=== PATIENT | male | born 1980 | race Caucasian/White ===

== ENCOUNTER 2017-05-28 13:45 | Emergency (ER) | payer SELFPAY ==
[2017-05-28 13:52] VITALS: TEMP 99.3
--- NOTE | 2017-05-28 15:03 | EDPHY ---
H & P Stated Complaint: Sent fro for eval panic attack causing "muscles locking up " HPI/ROS: HPI CHIEF COMPLAINT: Panic attack, anxiety HISTORY OF PRESENT ILLNESS: This patient very pleasant 37-year-old male, otherwise healthy does have a history of anxiety and panic attacks he presents emergency room stating that over the past few days he has been very stressed he is going through a big movies moving to [place]. He feels very anxious. He has been having panic attacks. He has been unable sleep with racing thoughts. He denies chest pain or shortness of breath. He thinks he may benefit from a prescription for anxiety medicine. Here in emergency room he appears well nontoxic is resting comfortably when I walked into the room is watching TV and laughing. In no acute distress. Past Medical History: Anxiety, panic attacks Past Surgical History: No recent surgical history Social History: Denies daily use of drugs alcohol tobacco products Family History: Noncontributory ROS REVIEW OF SYSTEMS: A comprehensive 10 point review of systems is otherwise negative aside from elements mentioned in the history of present illness. Exam Constitutional appears well nontoxic, laughing in the room, triage nursing summary reviewed, vital signs reviewed, awake/alert. Vital signs noted to be tachycardic, hypertensive. Eyes normal conjunctivae and sclera, EOMI, PERRLA. HENT normal inspection, atraumatic, moist mucus membranes, no epistaxis, neck supple/ no meningismus, no raccoon eyes. Respiratory clear to auscultation bilaterally, normal breath sounds, no respiratory distress, no wheezing. Cardiovascular rate normal, regular rhythm, no murmur, no edema, distal pulses normal. Gastrointestinal soft, non-tender, no rebound, no guarding, normal bowel sounds, no distension, no pulsatile mass. Genitourinary no CVA tenderness. Musculoskeletal no midline vertebral tenderness, full range of motion, no calf swelling, no tenderness of extremities, no meningismus, good pulses, neurovascularly intact. Skin pink, warm, & dry, no rash, skin atraumatic. Neurologic awake, alert and oriented x 3, AAOx3, moves all 4 extremities equally, motor intact, sensory intact, CN II-XII intact, normal cerebellar, normal vision, normal speech. Psychiatric normal mood/affect. Heme/Lymph/Immune no lymphadenopathy. Differential Diagnosis: Includes but is not limited to in a particular order, acute anxiety, panic attack Medical Decision Making: Plan for this patient limited prescription for Ativan 5 tabs. Work on breathing exercises. Return to the emergency room if there is any worsening symptoms questions or concerns. Source: Patient - Personal History Current Tetanus Diphtheria and Acellular Pertussis (TDAP): Yes - Medical/Surgical History Other PMH: anxiety/panic attacks - Social History Smoking Status: Never smoked Constitutional: Initial Vital Signs Temperature (C) 37.4 C 05/28/17 13:47 Heart Rate 120 H 05/28/17 13:47 Respiratory Rate 18 05/28/17 13:47 Blood Pressure 191/137 H 05/28/17 13:47 O2 Sat (%) 95 05/28/17 13:47 O2 Delivery Mode Room Air Allergies/Adverse Reactions: No Known Allergies Allergy (Unverified 05/28/17 13:52) Home Medications: Medication Instructions Recorded LORazepam [Ativan] 1 mg PO DAILY #5 tablet 05/28/17 Departure - Departure Disposition: Home, Routine, Self-Care Clinical Impression: Anxiety Condition: Good Instructions: Anxiety (ED) Additional Instructions: 1. Work on breathing exercises. 2. Take anxiety medicine only when your feeling very anxious. 3. Return emergency room if you have any worsening symptoms questions or concerns. Referrals: NONE *PRIMARY CARE P,. [Primary Care Provider] - As per Instructions Prescriptions: LORazepam [Ativan] 1 mg PO DAILY #5 tablet
[2017-05-28 16:58] VITALS: BP 169/115; PULSE 102; RESP 16; O2SAT 98
== END 2017-05-28 16:51 | disposition home or self-care (01) ==
DX: F41.9 Anxiety disorder, unspecified (principal)

== ENCOUNTER 2017-06-10 12:55 | Inpatient (IN) | payer SELFPAY ==
--- NOTE | 2017-06-10 14:21 | EDPHY ---
HPI/HX/ROS/PE/MDM Narrative: CHIEF COMPLAINT: Shortness of breath. HISTORY OF PRESENT ILLNESS: This patient is a healthy 37 year old male with history of anxiety complaining of increased anxiety and associated shortness of breath over the past couple of weeks. He was evaluated 05/28/17 here for similar symptoms, and given a prescription for Ativan at that time for symptom relief. He is relocating to [place] in two weeks, and has felt quite anxious and overwhelmed. He has been unable to sleep much and feels his breathing has been "challenged", which he describes as a shallowness rather than rapid breathing or chest tightness. He generally does breath work and practices deep breathing, and states this sensation is unusual for him. Symptoms are worse at night. He endorses a feeling of irregularity in his heartbeat. He denies chest pain or tingling around his lips or in his fingers. He denies personal or family history of blood clots. No fever, chills, chest pain, vomiting, diarrhea, urinary complaints, headache, lightheadedness. REVIEW OF SYSTEMS: Aside from elements discussed in the HPI, a comprehensive 10-point review of systems was reviewed and is negative. PAST MEDICAL HISTORY: Anxiety. SOCIAL HISTORY: Nonsmoker. No marijuana use. Rare alcohol use. VITAL SIGNS: Reviewed by me. BP 188/127 GENERAL: Well-developed, well-nourished, resting comfortably in no obvious respiratory distress. HEENT: Atraumatic. Eyes: No icterus, no injection. Mouth: moist mucous membranes. No erythema or lesions. Neck: supple with no adenopathy. LUNGS: Clear to auscultation bilaterally, no wheezes, rhonchi or rales. CARDIAC: Regular rate and rhythm, no rubs, murmurs or gallops. ABDOMEN: Soft, nontender, nondistended, bowel sounds normal. BACK: No CVA tenderness. EXTREMITIES: No trauma. Trace edema. Range of motion is normal throughout. NEURO: Alert and oriented, grossly nonfocal. SKIN: Warm and dry, no rash. PSYCHIATRIC: Normal mentation, no agitation. Portions of this note were transcribed by a medical technologist blood bank. I personally performed a history, physical exam, medical decision making, and confirmed accuracy of information the transcribed note. ED Course: 37 year old male presents with two week history of anxiety which manifests as episodes of shortness of breath. Prior visit reviewed; patient also quite hypertensive at that time as well. No previous EKG. Will screen for cardiac or PE as cause for symptoms. Patient is PERC negative, no ddimer obtained. EKG is abnormal, with a LBBB. 12-LEAD EKG: Please see the full report in [facility]. My interpretation: Sinus rhythm, rate 96. Incomplete left bundle branch block. Given abnormal EKG, plan for chest x-ray and labs to be drawn. Patient received ativan. Labs including CBC, BMP, troponin, and D-Dimer sent. Clonidine 0.2mg given for persistant hypertension. BP still elevated following administration of Ativan and clonidine. Patient is slightly tachycardic at this time as well. BNP elevated at 1740. Chest x-ray demonstrates mild pulmonary edema. 17:54 Spoke with hospitalist service. Dr. Gomez accepts admission. Discussed situation with patient. He is upset and concerned that he has not been kept well informed regarding the evaluation as it has proceeded in the ED. I explained that due to the acuity in the ED, I had not been able to personally re evaluate patient as often as I wished, and apologized. I held a long discussion regarding the evaluation, the rationale for my evaluation, the findings thus far, and my recommendations for inpatient evaluation. Patient discussed this situation with his family via phone. Agrees with plan of admit. MDM: Differential diagnosis for the patient's shortness of breath was considered including but not limited to pulmonary infectious processes, COPD exacerbation, pulmonary emboli, pulmonary edema, congestive heart failure, anxiety, and cardiac causes. - Data Points Imaging Results: Imaging Impressions Chest X-Ray 06/10/17 15:15 Impression: Mild pulmonary vascular congestion and pulmonary edema, bilateral. This could be a component of congestive heart failure. There also may be some underlying bronchitis and possible atelectasis or pneumonia in the right lower lobe. Laboratory Results: Laboratory Results 06/10/17 15:40 06/10/17 15:40 06/10/17 06/10/17 06/10/17 16:23 15:40 15:40 WBC RBC Hgb Hct MCV MCH MCHC RDW Plt Count MPV Neut % (Auto) Lymph % (Auto) Callaway % (Auto) Eos % (Auto) Baso % (Auto) Nucleat RBC Rel Count Absolute Neuts (auto) Absolute Lymphs (auto) Absolute Monos (auto) Absolute Eos (auto) Absolute Basos (auto) Absolute Nucleated RBC Immature Gran % Immature Gran # D-Dimer 0.38 ug/mLFEU ug/mLFEU (0.00-0.50) Sodium 140 mEq/L mEq/L (134-144) Potassium 3.6 mEq/L mEq/L (3.5-5.2) Chloride 106 mEq/L mEq/L (97-110) Carbon Dioxide 19 mEq/l L mEq/l (22-31) Anion Gap 15 mEq/L mEq/L (8-16) BUN 19 mg/dL mg/dL (7-23) Creatinine 1.2 mg/dL mg/dL (0.7-1.3) Estimated GFR > 60 Glucose 233 mg/dL H mg/dL (70-100) Calcium 10.5 mg/dL H mg/dL (8.5-10.4) Troponin I 0.017 ng/mL ng/mL (0-0.034) NT-Pro-B Natriuret Pep 1740 pg/mL H pg/mL (0-125) 06/10/17 15:40 WBC 13.96 10^3/uL H 10^3/uL (3.80-9.50) RBC 5.24 10^6/uL 10^6/uL (4.40-6.38) Hgb 14.8 g/dL g/dL (13.7-17.5) Hct 43.4 % % (40.0-51.0) MCV 82.8 fL fL (81.5-99.8) MCH 28.2 pg pg (27.9-34.1) MCHC 34.1 g/dL g/dL (32.4-36.7) RDW 14.0 % % (11.5-15.2) Plt Count 362 10^3/uL 10^3/uL (150-400) MPV 11.7 fL fL (8.7-11.7) Neut % (Auto) 72.3 % % (39.3-74.2) Lymph % (Auto) 17.0 % % (15.0-45.0) Callaway % (Auto) 6.7 % % (4.5-13.0) Eos % (Auto) 3.1 % % (0.6-7.6) Baso % (Auto) 0.5 % % (0.3-1.7) Nucleat RBC Rel Count 0.0 % % (0.0-0.2) Absolute Neuts (auto) 10.08 10^3/uL H 10^3/uL (1.70-6.50) Absolute Lymphs (auto) 2.38 10^3/uL 10^3/uL (1.00-3.00) Absolute Monos (auto) 0.94 10^3/uL H 10^3/uL (0.30-0.80) Absolute Eos (auto) 0.43 10^3/uL H 10^3/uL (0.03-0.40) Absolute Basos (auto) 0.07 10^3/uL 10^3/uL (0.02-0.10) Absolute Nucleated RBC 0.00 10^3/uL 10^3/uL (0-0.01) Immature Gran % 0.4 % % (0.0-1.1) Immature Gran # 0.06 10^3/uL 10^3/uL (0.00-0.10) D-Dimer Sodium Potassium Chloride Carbon Dioxide Anion Gap BUN Creatinine Estimated GFR Glucose Calcium Troponin I NT-Pro-B Natriuret Pep Medications Given: Discontinued Medications Clonidine (Catapres) 0.2 mg PO EDNOW ONE Stop: 06/10/17 16:04 Last Admin: 06/10/17 16:15 Dose: Not Given Clonidine (Catapres) 0.2 mg PO EDNOW ONE Stop: 06/10/17 16:16 Last Admin: 06/10/17 16:16 Dose: 0.2 mg Sodium Chloride (Ns) 1,000 mls @ 0 mls/hr IV ONCE ONE; Wide Open PRN Reason: Protocol Stop: 06/10/17 15:16 Last Admin: 06/10/17 15:50 Dose: 1,000 mls Lorazepam (Ativan) 1 mg PO EDNOW ONE Stop: 06/10/17 14:27 Last Admin: 06/10/17 14:41 Dose: 1 mg General Time Seen by Provider: 06/10/17 14:09 Initial Vital Signs: Initial Vital Signs Temperature (C) 36.9 C 06/10/17 13:06 Heart Rate 90 06/10/17 13:06 Respiratory Rate 20 06/10/17 13:06 Blood Pressure 188/127 H 06/10/17 13:06 O2 Sat (%) 99 06/10/17 13:06 O2 Delivery Mode Room Air O2 (L/minute) 2 Allergies/Adverse Reactions: No Known Allergies Allergy (Verified 06/10/17 13:05) Home Medications: Medication Instructions Recorded Carvedilol [Coreg (*)] 3.125 mg PO BIDMEAL #60 tab 06/11/17 LORazepam [Ativan (*)] 0.5 mg PO Q8HRS PRN #14 tab 06/11/17 Lisinopril 5 mg PO DAILY #30 tablet 06/11/17 hydrALAZINE [Apresoline] 25 mg PO TID #30 tab 06/11/17 Departure - Departure Disposition: Home, Routine, Self-Care Clinical Impression: Hypertension, LBBB (left bundle branch block), CHF (congestive heart failure), Dyspnea Condition: Fair Report Scribed for: Rachel Cabrera Report Scribed by: Vivi Landaverde Date of Report: 06/10/17 Time of Report: 14:25
[2017-06-10] MEDS ORDERED: LORazepam 1 MG TAB PO ONE (14:26)
--- NOTE | 2017-06-10 15:06 | CPEKG ---
Heart Rate: 96 RR Interval: 625 P-R Interval: 144 QRSD Interval: 116 QT Interval: 368 QTC Interval: 465 P Cran[place]: 62 QRS [place]: 33 T Wave [place]: 154 EKG Severity - ABNORMAL ECG - EKG Impression: SINUS RHYTHM EKG Impression: INCOMPLETE LEFT BUNDLE BRANCH BLOCK Electronically Signed By: Wellington Urbina 10-Jun-2017 15:27:18
[2017-06-10] MEDS ORDERED: NS 1,000 ML IV ONE (15:15)
[2017-06-10 15:47] LABS: % IMMATURE GRANULYOCYTES 0.4 % (0.0-1.1); ABSOLUTE IMMATURE GRANULOCYTES 0.06 10^3/uL (0.00-0.10); ADD DIFF? NO; ADD MORPH? NO; ADD SCAN? NO; ATYPICAL LYMPHOCYTE FLAG 0 (0-99); FRAGMENT RBC FLAG 0 (0-99); HEMATOCRIT 43.4 % (40.0-51.0); HEMOGLOBIN 14.8 g/dL (13.7-17.5); LEFT SHIFT FLG 0 (0-99); LIPEMIA HEMOLYSIS FLAG 90 (0-99); MEAN CELL HEMOGLOBIN 28.2 pg (27.9-34.1); MEAN CELL HEMOGLOBIN CONCENTR. 34.1 g/dL (32.4-36.7); MEAN CELL VOLUME 82.8 fL (81.5-99.8); MEAN PLATELET VOLUME 11.7 fL (8.7-11.7); PLATELET CLUMPS FLAG 20 (0-99); PLATELET COUNT 362 10^3/uL (150-400); RED BLOOD CELL COUNT 5.24 10^6/uL (4.40-6.38)
[2017-06-10 16:06] LABS: ANION GAP 15 mEq/L (8-16); CALCIUM 10.5 mg/dL (8.5-10.4); CARBON DIOXIDE 19 mEq/l (22-31); CHLORIDE 106 mEq/L (97-110); CREATININE 1.2 mg/dL (0.7-1.3); GLOMERULAR FILTRATION RATE > 60; GLUCOSE 233 mg/dL (70-100); POTASSIUM 3.6 mEq/L (3.5-5.2); SODIUM 140 mEq/L (134-144)
[2017-06-10 16:16] LABS: TROPONIN I 0.017 ng/mL (0-0.034)
[2017-06-10] MEDS ORDERED: FUROSEMIDE 20 MG/2 ML VIAL IVP ONE (17:58)
[2017-06-10] MEDS ORDERED: LORazepam 0.5 MG TAB PO PRN (21:38)
[2017-06-10] MEDS ORDERED: ACETAMINOPHEN 325 MG TAB PO PRN (21:38)
[2017-06-10] MEDS ORDERED: ONDANSETRON 4 MG/2 ML VIAL IVP PRN (21:38)
[2017-06-10] MEDS ORDERED: ONDANSETRON DISINTEGRATING 4 MG TAB PO PRN (21:38)
[2017-06-10] MEDS: hydrALAZINE 25 MG TAB PO SCH (21:53)
[2017-06-10] MEDS ORDERED: D50W 25 GM/50 ML SYR IVP PRN (22:35)
[2017-06-10] MEDS ORDERED: D10W 250 ML PRN HYPOGLYCEMIA IV (22:35)
[2017-06-10 23:17] LABS: HEMOGLOBIN A1C 8.6 % (4.0-6.0)
--- NOTE | 2017-06-10 23:27 | GHP ---
[f rep st] HISTORY AND PHYSICAL DATE OF ADMISSION: 06/10/2017 CHIEF COMPLAINT: Shortness of breath. HISTORY OF PRESENT ILLNESS: The patient is a 37-year-old male with a history of obstructive sleep apnea and anxiety, who presents to the emergency department with shortness of breath. He was seen in the emergency department a couple of weeks ago complaining of anxiety associated with shortness of breath. At that time, he was diagnosed with a panic attack and was discharged with oral Ativan. He states he returns for followup as he is concerned that his anxiety is continuing to cause him to feel short of breath. He endorses orthopnea. He does have mild lower extremity peripheral edema. He denies chest pain. He denies fevers or cough. He does not follow his daily weights, but does not think that he has had significant weight gain. He denies a history of hypertension or heart or lung problems. He is planning to move [place] in the next 2 weeks, and was hoping to get his anxiety symptoms under better control prior to making a move. In the emergency department, his workup was suggestive of acute heart failure with a BNP of 1740, a chest x-ray suggestive of pulmonary edema, and he was found to be quite hypertensive with a blood pressure of 170s over 110s. He was admitted to the hospital for further management of his acute heart failure. PAST MEDICAL HISTORY: 1. Obstructive sleep apnea. 2. Severe obesity. 3. Anxiety. MEDICATIONS: Please see Janrain for complete updated outpatient medication list. ALLERGIES: No known drug allergies. FAMILY HISTORY: He states his father has hypertension. SOCIAL HISTORY: The patient lives alone. He denies tobacco or alcohol use. 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 REVIEW OF SYSTEMS: A 10-point review of systems was performed and is negative except as per HPI. OBJECTIVE: VITAL SIGNS: Temperature is 36.6, blood pressure on arrival 174/117 , current blood pressure 151/116, heart rate 96, respiratory rate 18. He is 96 % on 2 L of oxygen by nasal cannula. GENERAL: The patient is awake, alert, and oriented. He is slightly anxious. HEENT: Head is atraumatic, normocephalic. Pupils equal, round, and reactive to light. Extraocular muscles are intact. Oropharynx is clear. Mucous members are moist. NECK: Supple. He has 8 cm of JVD. HEART: Regular rate and rhythm. LUNGS: Reveal bibasilar crackles. ABDOMEN: Soft, obese, nondistended, nontender. Normoactive bowel sounds. EXTREMITIES: He has 1+ bilateral lower extremity pretibial pitting edema. NEUROLOGIC: Grossly nonfocal. PSYCH: The patient is anxious. LABORATORY DATA: CBC reveals a white blood cell count of 13.9. Hemoglobin is normal. Platelets are normal. D-dimer is negative at 0.38. Basic metabolic panel is remarkable for serum bicarb of 19, glucose 233, calcium 10.5. Troponin is negative. NT-proBNP is 1740. Chest x-ray is personally reviewed and interpreted is consistent with pulmonary edema. No obvious focal consolidations. EKG shows normal sinus rhythm with an incomplete left bundle branch block. ASSESSMENT AND PLAN: The patient is a 37-year-old male with a history of obstructive sleep apnea and anxiety, who presents to the emergency department with shortness of breath, found to be in acute heart failure. He is admitted to the hospital for further management. 1. Acute heart failure. The patient is admitted to the PCU. He received IV Lasix in the emergency department. We will continue daily IV Lasix, monitor his I's and O's and daily weights. He presents significantly hypertensive. Will treat with hydralazine and Isordil for tonight. An echo is ordered for the morning. He may need to be transitioned to REINA and/or beta kiara. Will check a TSH. 2. Abnormal electrocardiogram. He has an incomplete left bundle branch block on EKG. An echocardiogram is ordered as above. His initial troponin is negative. He is chest pain-free. We will trend his troponin, and repeat an EKG in the morning. 3. Hypertension. This is not previously diagnosed. As above, the patient will receive hydralazine and Isordil for tonight and consider transition to lisinopril tomorrow. We will await the results of his echocardiogram. 4. Obstructive sleep apnea. The patient will need an outpatient sleep study and updated CPAP equipment. 5. Leukocytosis. This may be a stress response given his marked anxiety on arrival. He has no fevers or cough to suggest pneumonia. There are no other obvious infectious symptoms. Will follow this for now. 6. Anxiety. Will give p.r.n. Ativan. 7. Hyperglycemia. He is not a known diabetic. We will check an A1c and give him sliding scale insulin for glycemic control. 8. Deep venous thrombosis prophylaxis. The patient is moderate risk with his obesity. We will give Lovenox. CODE STATUS: Patient is full code. DISPOSITION: Patient is admitted to inpatient status as I expect he will require greater than 48 hours hospitalization for ongoing management of his new onset heart failure, dyspnea, and hypertension transcriptions. /[id number]/MODL MTDD
[2017-06-11] MEDS: POTASSIUM CL 20 MEQ TAB PO SCH ×2 (03:44→09:27)
[2017-06-11 03:51] LABS: % IMMATURE GRANULYOCYTES 0.4 % (0.0-1.1); ABSOLUTE IMMATURE GRANULOCYTES 0.05 10^3/uL (0.00-0.10); ADD DIFF? NO; ADD MORPH? NO; ADD SCAN? NO; ATYPICAL LYMPHOCYTE FLAG 0 (0-99); FRAGMENT RBC FLAG 0 (0-99); HEMOGLOBIN 13.9 g/dL (13.7-17.5); LEFT SHIFT FLG 0 (0-99); LIPEMIA HEMOLYSIS FLAG 90 (0-99); MEAN CELL HEMOGLOBIN 28.3 pg (27.9-34.1); MEAN CELL HEMOGLOBIN CONCENTR. 33.9 g/dL (32.4-36.7); MEAN CELL VOLUME 83.3 fL (81.5-99.8); MEAN PLATELET VOLUME 11.6 fL (8.7-11.7); PLATELET CLUMPS FLAG 0 (0-99); PLATELET COUNT 327 10^3/uL (150-400); RED BLOOD CELL COUNT 4.92 10^6/uL (4.40-6.38); RED CELL DISTRIBUTION WIDTH 14.1 % (11.5-15.2)
[2017-06-11 04:33] LABS: ANION GAP 9 mEq/L (8-16); CALCIUM 10.2 mg/dL (8.5-10.4); CARBON DIOXIDE 23 mEq/l (22-31); CHLORIDE 106 mEq/L (97-110); CREATININE 1.2 mg/dL (0.7-1.3); GLOMERULAR FILTRATION RATE > 60; GLUCOSE 179 mg/dL (70-100); POTASSIUM 3.2 mEq/L (3.5-5.2); SODIUM 138 mEq/L (134-144)
[2017-06-11] MEDS ORDERED: ENOXAPARIN 40 MG/0.4 ML SYR SC SCH (09:00)
[2017-06-11] MEDS ORDERED: FUROSEMIDE 20 MG/2 ML VIAL IVP SCH (09:00)
--- NOTE | 2017-06-11 09:04 | CPEKG ---
Heart Rate: 99 RR Interval: 606 P-R Interval: 204 QRSD Interval: 116 QT Interval: 364 QTC Interval: 468 P [place]: 71 QRS [place]: 53 T Wave [place]: 170 EKG Severity - ABNORMAL ECG - EKG Impression: SINUS RHYTHM EKG Impression: INCOMPLETE LEFT BUNDLE BRANCH BLOCK Electronically Signed By: Paul Palmer 12-Jun-2017 07:02:52
[2017-06-11] MEDS: hydrALAZINE 25 MG TAB PO SCH (09:27)
[2017-06-11] MEDS: ISOSORBIDE DINITRATE 10 MG TAB PO SCH ×2 (09:27→12:52)
[2017-06-11] MEDS: INSULIN LISPRO 100 UNIT/ML SC SCH ×2 (09:28→13:53)
--- NOTE | 2017-06-11 09:50 | ECHO ---
[id number] + + [address] : : [place] [address] : : [phone] + + Adult Echocardiographic Report + -------+ :Name: SMITA MENDOZA LStudy Date: 06/11/2017 08:41 AM : : Hospital Admission Number: [id number] Locati on: 216: :: 1980 Gender: Male Height: 67 in : :Age: 37 yrs Race: WH Weight: 229 lb : :Reason For Study: Eval LV Fx : : BSA: 2.1 meter s2 : :History: Acute Heart Failure, Elevated BNP : + -------+ MMode/2D Measurements \T\ Calculations IVSd: 1.4 cm LVIDd: 5.3 cm FS: 19.4 % Ao root diam: LVPWd: 1.3 cm LVIDs: 4.3 cm EDV(Teich): 3.1 cm 134.7 ml ACS: 1.6 cm ESV(Teich): 81.3 ml EF(Teich): 39.6 % LVLd ap4: 8.9 cm SV(MOD-sp4): EDV(MOD-sp4): 49.0 ml 134.0 ml LVLs ap4: 8.9 cm ESV(MOD-sp4): 85.0 ml EF(MOD-sp4): 36.6 % Normal Measurement Values: + + :LVIDd (3.5-5.7cm) IVSd (0.6-1.1cm) LVPWd (0.6-1.1cm) Aortic Root (2.0-3.7cm)Left Atrium (1.5-4.0cm): :LV Vol(d) (76-115ml) LV Vol(s) (29-48ml) Ejec Fraction (50-65%)PV Percy (0.6- 1.2m/s) TV Percy (0.4-1.0m/s) : :MV E Percy (0.8-1.0m/s)MV A Percy (0.3-1.0m/s)LVOT Percy (0.7-1.2m/s) Asc Ao Percy ( 0.9-1.8m/s) : + + Doppler Measurements \T\ Calculations MV E max percy: Ao V2 max: LV V1 max: PA V2 max: 125.9 cm/sec 112.7 cm/sec 84.9 cm/sec 76.0 cm/sec Ao max P.1 mmHgLV V1 max PG: PA max P.9 mmHg 2.3 mmHg Left Ventricle The left ventricle is moderately dilated. There is mild to moderate concentric left ventricular hypertrophy. Left ventricular systolic function is moderately reduced. Ejection Fraction = 35-40%. Septal motion is consistent with conduction abnormality. There is moderate global hypokinesis of the left ventricle. Right Ventricle The right ventricle is normal in size and function. Atria The left atrial size is normal. Right atrial size is normal. Mitral Valve The mitral valve is normal in structure and function. There is no evidence of mitral valve prolapse. There is no mitral valve stenosis. There is no mitral regurgitation noted. Tricuspid Valve Normal tricuspid valve. There is trace tricuspid regurgitation. Right ventricular systolic pressure is normal. Aortic Valve The aortic valve opens well. There is no aortic stenosis. There is no aortic insufficiency. Pulmonic Valve The pulmonic valve is normal in structure and function. There is no pulmonic valvular regurgitation. Great Vessels The aortic root is normal size. Pericardium/Pleural There is no pericardial effusion. Conclusion A complete two-dimensional transthoracic echocardiogram was performed (2D, M-mode, Doppler and color flow Doppler). Left ventricular systolic function is moderately reduced. Septal motion is consistent with conduction abnormality. There is moderate global hypokinesis of the left ventricle. Ejection Fraction = 35-40%. The right ventricle is normal in size and function. The mitral valve is normal in structure and function. There is trace tricuspid regurgitation. Right ventricular systolic pressure is normal. The aortic valve opens well. There is no pericardial effusion. BH I DID SOME OFF AXIS VIEWS TO SEE HIS LV, I DID 2D, MMODE SAX AND SIMPSONS AND HIS LV EF AVG 35-40% DO YOU WANT TO ADD ANYTHING TO THIS? ARCELIA The left ventricle is moderately dilated. There is mild to moderate concentric left ventricular hypertrophy. Final Reading Physician: Chance Hall electronically signed on 06/11/2017 09:49 AM Ordering Physician: Dolly Gomez Performed By: Arcelia Rogel, RICHARCS
[2017-06-11 11:05] VITALS: BP 159/115; PULSE 96; RESP 14; TEMP 98.7; O2SAT 97
--- NOTE | 2017-06-11 13:25 | PDDCSUM ---
Discharge Summary Discharge Summary: Dates of service 06/10-06/11/17 Discharge dx: # acute systolic heart failure # hypertensive urgency # new diagnosis of DM2 # anxiety # SKYE untreated Consultations: cardiology Procedures performed: echocardiogram Hospital course by problem: 37 yo M with PMH of SKYE and untreated htn and anxiety presenting with sob and found to have acute systolic heart failure # acute systolic heart failure: with EF of 35-40% with moderate global hypokinesis of LV, ECG showing LBBB with no olds to compare. Differential would include ischemic CM as well as NICM related to htn and recommendation is for cardiac catheterization for further evaluation. Patient declines this option and chooses to rather leave AMA. # hypertensive urgency: sounds as though patient has had longstanding issues with htn that have been untreated, started hydralazine, bb, lisinopril with improvement. Discussed that we would like to continue to titrate medications however again, patient choosing to leave AMA # DM: new diagnosis of DM with A1c of 8.6, he declines further treatment and evaluation at this time # anxiety: per patient he feels that this is the biggest reason for his current issues, recommend that he obtain f/u with counselor and given small amount of ativan DC AMA Strongly urged f/u with cardiology
[2017-06-11] MEDS ORDERED: LISINOPRIL 5 MG TAB PO SCH (13:30)
--- NOTE | 2017-06-11 17:09 | GCON ---
[f rep st] CONSULTATION CARDIOLOGY CONSULTATION DATE OF CONSULTATION: 06/11/2017 REFERRING PHYSICIAN: Dolly Gomez MD REASON FOR CONSULTATION: New onset of systolic congestive heart failure. HISTORY OF PRESENT ILLNESS: The patient is a pleasant 37-year-old gentleman with a past medical history of obstructive sleep apnea without CPAP compliance for at least the last 12 months, and underlying history of anxiety, who states that he presented to an urgent care facility to assist him with his increased anxiety he had been feeling lately. He states that at the urgent care, he was directed to [facility] for further evaluation. On his evaluation in the emergency department, he complained of increasing shortness of breath. He subsequently underwent a complete 2D echocardiogram which was done earlier today, demonstrating a global hypokinesis with LVEF of 35% to 40% with moderate cavity dilatation and [id number] LVH. There are no significant valvular abnormalities. His BNP was found to be elevated at 1740, initial troponin of 0.017. His EKG in the emergency department demonstrated sinus rhythm with first-degree AV block and left bundle branch block. The patient states he has never had an ECG prior to the one performed in the emergency department today. He denies complaints of shortness of breath, dyspnea, chest pain, chest pressure , palpitations, dizziness, lightheadedness, or syncope. He indirectly describes symptoms consistent with paroxysmal nocturnal dyspnea. He relates all of his symptoms to underlying anxiety. He describes he is in a very stressful state in his life with many changes occurring and plans on moving to [place] in the next 2 weeks. He denies any complaints of increasing or any lower extremity edema, weight changes, or increased abdominal girth. He denies any recent viral illness, fevers, chills, sweats, nausea, or vomiting. He is on no medications. He has no history of alcohol use or illicit drug use. Currently, at the time of my exam, he is resting comfortably without complaint. On his presentation to the emergency department, he was found to be markedly hypertensive with a blood pressure of 180/130. He is not on any antihypertensive medications. He denies any previous history of hypertension. PAST MEDICAL HISTORY: 1. Obesity. 2. Obstructive sleep apnea with noncompliance to CPAP for at least the last 12 months. 3. Anxiety. PAST SURGICAL HISTORY: He had adenoids removed. SOCIAL HISTORY: He lives alone. He is not . He has no children. He does not drink alcohol. No illicit drug use. 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 FAMILY HISTORY: He states he has no known family history of sudden cardiac or premature coronary artery disease. PHYSICAL EXAMINATION: VITAL SIGNS: Current vital signs are blood pressure of 159/115, heart rate 96 in sinus rhythm, respiratory rate of 14, oxygen saturation 97% on room air, temperature 37.1. GENERAL: He is awake, alert, oriented, appropriate, in no apparent distress. NECK: There is no evidence of JVP or carotid bruits. LUNGS: Clear to auscultation bilaterally. CARDIAC: S1 , S2. Regular rate and rhythm. No murmurs, rubs, or gallops. PMI is not displaced. LUNGS: Clear to auscultation bilaterally. ABDOMEN: Soft, nontender, nondistended. No pulsatile mass or abdominal bruit. EXTREMITIES: There is no evidence of cyanosis, clubbing, or edema. LABORATORY DATA: White blood cell count 11.4, hemoglobin 13.9, hematocrit 41, platelets 327. Sodium 138, potassium 3.2, chloride 106, bicarb 23, BUN 18, creatinine 1.2, glucose 179. Hemoglobin A1c is elevated at 8.6. Calcium 10. Troponin 0.017, trending to 0.018, and terminal proBNP 1740. TSH 1.630. EKG: Sinus rhythm, first-degree AV block with left bundle branch block. No previous ECG, per patient's report. Echocardiogram demonstrates dilated cardiomyopathy with LVEF of 35% to 40% with moderate cavity dilatation and [id number] concentric hypertrophy. Chest x-ray demonstrates mild pulmonary vascular congestion and pulmonary edema bilaterally. IMPRESSION: 1. New onset of systolic congestive heart failure. 2. Hypertension. 3. Dilated cardiomyopathy. In summary, the patient is a pleasant 37-year-old gentleman who presented to an urgent care with complaints of anxiety and was referred to [facility]. He has complaints of shortness of breath. He was found to have new systolic congestive heart failure, hypertensive, and EKG abnormalities with first-degree AV block and left bundle branch block. I have conveyed these findings to the patient. I have expressed to him in detail my concern about his dilated cardiomyopathy, his hypertension, and his new left bundle branch block. I have outlined a workup including diagnostic left heart catheterization , medical management with heart failure therapy. He is declining further workup at this time. He states he only wants to go home and become "grounded" and rethink his response to my comments. I have strongly encouraged him to reconsider. I explained that this was potentially life threatening in the setting of newly diagnosed diabetes based on his hemoglobin A1c and serum glucose that we have obtained today, coupled with hypertension, new left bundle-branch block, and dilated cardiomyopathy with LVEF of 35% to 40%, I was concerned for underlying coronary artery disease. I explained that he was at risk for sudden cardiac . He states he understands my perspective and continues to feel that he would rather go home than pursue further workup at this time. I explained that he if he was leaving, this would be against my medical advice. RECOMMENDATIONS: 1. Recommend diagnostic left and right heart catheterization. 2. Recommend initiating Coreg 3.125 mg p.o. b.i.d. 3. Recommend initiating lisinopril 5 mg once daily. 4. Recommend patient remain hospitalized until workup is complete and we can evaluate titration of medical therapy. 5. He would also require supplementation of potassium and close monitoring of electrolytes. He again refuses the above workup with the exception of willing to accept some medication for his blood pressure. 45 minutes spent coordinating patient care /[id number]/WENDIL LYNETTE
[2017-06-11] MEDS ORDERED: CARVEDILOL 3.125 MG TAB PO SCH (18:00)
--- NOTE | 2017-06-11 18:36 | HOSPPROG ---
Hospitalist Progress Note Assessment/Plan: 37 yo M with PMH of SKYE and untreated htn and anxiety presenting with sob and found to have acute systolic heart failure # acute systolic heart failure: with EF of 35-40% with moderate global hypokinesis of LV, ECG showing LBBB with no olds to compare. Differential would include ischemic CM as well as NICM related to htn and recommendation is for cardiac catheterization for further evaluation. Patient declines this option and chooses to rather leave AMA. # hypertensive urgency: sounds as though patient has had longstanding issues with htn that have been untreated, started hydralazine, bb, lisinopril with improvement. Discussed that we would like to continue to titrate medications however again, patient choosing to leave AMA # DM: new diagnosis of DM with A1c of 8.6, he declines further treatment and evaluation at this time # anxiety: per patient he feels that this is the biggest reason for his current issues, recommend that he obtain f/u with counselor and given small amount of ativan # > 60 minutes spent with patient in face to face counseling from 945 until 1045 am explaining etiology for why he should remain in house and concerns of possible outcomes if he should choose to leave AMA Subjective: patient states he is feeling well, no chest pain, no sob Objective: Vital Signs Temp Pulse Resp BP Pulse Ox 37.1 C 96 14 159/115 H 97 06/11/17 11:04 06/11/17 11:04 06/11/17 11:04 06/11/17 11:04 06/11/17 11:04 Laboratory Results 06/11/17 03:39 06/11/17 03:39 06/10/17 06/11/17 06/12/17 05:59 05:59 05:59 Intake Total 1300 Balance 1300 awake alert nad anicteric op clear jvd wnl rrr no mrg cta with bibasilar crackles trace ble edema warm dry well perfused ICD10 Worksheet Patient Problems: Problems Problem Status Onset CHF (congestive heart failure) Acute
== END 2017-06-11 15:09 | disposition left against medical advice (07) | DRG 292 ==
LOC: OBSVTOIN 17:56 → F2W 19:59
PROVIDERS: ADMIT Hospitalist; ATTEND Internal Medicine
DX: I50.21 Acute systolic (congestive) heart failure (principal); I42.0 Dilated cardiomyopathy; I16.0 Hypertensive urgency; E11.9 Type 2 diabetes mellitus without complications; F41.9 Anxiety disorder, unspecified; I44.7 Left bundle-branch block, unspecified; G47.33 Obstructive sleep apnea (adult) (pediatric); D72.829 Elevated white blood cell count, unspecified
CPT/HCPCS: 96374; J1650; J1815; J1940

== ENCOUNTER 2017-06-13 09:30 | Inpatient (IN) | payer SELFPAY ==
--- NOTE | 2017-06-13 10:34 | EDPHY ---
H & P Smoking Status: Never smoked Time Seen by Provider: 06/13/17 09:53 HPI/ROS: CHIEF COMPLAINT: High blood pressure, shortness of breath HISTORY OF PRESENT ILLNESS: 37-year-old male presents to the emergency department complaining of intermittent shortness of breath and symptoms of what he is describing as anxiety over last few weeks. Patient was seen in the emergency department approximately 3 weeks ago with very similar symptoms. He was given a prescription for some Ativan to use for anxiety. This did help his symptoms and then he ran out of the medication. He then presented to the emergency department just 2 days ago. He was admitted to the hospital and was evaluated by Cardiology. He had an echocardiogram performed and had evidence of dilated cardiomyopathy as well as new onset systolic congestive heart failure. It was recommended that the patient have a cardiac catheterization, however the patient was so upset with the commercial lender and how he was treated that he left against medical advice. Was given prescription for lisinopril for his elevated blood pressure, however the patient did not start this medication. The patient has no pain in his chest. He does feels short of breath although he states that he is feeling better now. He knows that his biological father has a history of elevated blood pressure. Knows that there is a family history of cardiac disease although he is not sure what. He does not smoke cigarettes. He does not drink alcohol or do any other recreational drugs. Does have a history of obstructive sleep apnea and has not been compliant with using his CPAP machine for nearly 1 year. No recent travel. No calf pain or swelling. He does not currently have a primary care provider. REVIEW OF SYSTEMS: Constitutional: No fever, no chills. Eyes: No double or blurry vision. ENT: No sore throat. Respiratory: Shortness of breath as above. No cough Cardiac: No chest pain. Gastrointestinal: No abdominal pain, vomiting or diarrhea. Genitourinary: No dysuria. Musculoskeletal: No neck or back pain. Skin: No rashes. Neurological: No headache. (Josie Matthews) Past Medical/Surgical History: Hypertension, sleep apnea noncompliant with CPAP, anxiety (Josie Matthews) Social History: Single and lives in [place]. (Josie Matthews) Physical Exam: General Appearance: Alert, no distress. Blood pressure 201/134, heart rate 100 , 96% on room air. No apparent distress. Father at bedside. Eyes: Pupils equal and round. Extraocular motions are all intact. ENT: Mouth: Mucous membranes moist. Respiratory: No wheezing, rhonchi, or rales, lungs are clear to auscultation. Cardiovascular: Regular rate and rhythm. Gastrointestinal: Abdomen is soft and nontender, no masses, no rebound or guarding, bowel sounds normal. Neurological: Alert and oriented x 3, cranial nerves II through XII grossly intact Skin: Warm and dry, no rashes. Musculoskeletal: Nontender to palpate along the cervical, thoracic or lumbar spine. Neck is supple. Extremities: Full range of motion and no peripheral edema. Psychiatric: Patient is oriented X 3, there is no agitation. (Josie Matthews) Constitutional: Initial Vital Signs Temperature (C) 36.7 C 06/13/17 09:31 Heart Rate 98 06/13/17 09:31 Respiratory Rate 18 06/13/17 09:31 Blood Pressure 201/130 H 06/13/17 09:31 O2 Sat (%) 98 06/13/17 09:31 O2 Delivery Mode Room Air Allergies/Adverse Reactions: No Known Allergies Allergy (Verified 06/10/17 13:05) Home Medications: Medication Instructions Recorded Aspirin [Aspirin 325 mg (*)] 325 mg PO DAILY PRN 06/13/17 Herbals/Supplements -Info Only 1 ea PO DAILY 06/13/17 Multivitamins [Multivitamin (*)] 1 each PO DAILY 06/13/17 Medical Decision Making ED Course/Re-evaluation: 37-year-old male presents to the emergency department with ongoing dyspnea. He was diagnosed with hypertension, new onset systolic congestive heart failure and dilated cardiomyopathy seen on echocardiogram. Left against medical advice and returns to the emergency department for evaluation. I spoke with the on-call commercial lender, Dr. Grey Juan who will come see the patient in the emergency department. Dr. Juan does agree that the patient should have a cardiac catheterization, however he would not do this right now. Requested that the patient be started on Coreg 6.25 mg and lisinopril 10 mg p. o.. He will be admitted to the telemetry floor to Dr. Francisca Boston. The case was discussed with Dr. Urbina, secondary supervising physician, who agrees with treatment and plan. (Josie Matthews) Differential Diagnosis: Shortness of breath including but not limited to pulmonary infectious process, COPD, asthma, pulmonary embolus and congestive heart failure. (Josie Matthews) Other Provider: [id number]: Evaluated patient in conjunction with CHUCHO Matthews. (Wellington Urbina) - Data Points Laboratory Results: Laboratory Results 06/13/17 09:45 06/13/17 09:45 06/13/17 06/13/17 09:45 09:45 WBC 11.27 10^3/uL H 10^3/uL (3.80-9.50) RBC 5.46 10^6/uL 10^6/uL (4.40-6.38) Hgb 15.2 g/dL g/dL (13.7-17.5) Hct 45.3 % % (40.0-51.0) MCV 83.0 fL fL (81.5-99.8) MCH 27.8 pg L pg (27.9-34.1) MCHC 33.6 g/dL g/dL (32.4-36.7) RDW 14.2 % % (11.5-15.2) Plt Count 351 10^3/uL 10^3/uL (150-400) MPV 12.0 fL H fL (8.7-11.7) Neut % (Auto) 75.1 % H % (39.3-74.2) Lymph % (Auto) 16.3 % % (15.0-45.0) [place] % (Auto) 6.9 % % (4.5-13.0) Eos % (Auto) 0.9 % % (0.6-7.6) Baso % (Auto) 0.5 % % (0.3-1.7) Nucleat RBC Rel Count 0.0 % % (0.0-0.2) Absolute Neuts (auto) 8.46 10^3/uL H 10^3/uL (1.70-6.50) Absolute Lymphs (auto) 1.84 10^3/uL 10^3/uL (1.00-3.00) Absolute Monos (auto) 0.78 10^3/uL 10^3/uL (0.30-0.80) Absolute Eos (auto) 0.10 10^3/uL 10^3/uL (0.03-0.40) Absolute Basos (auto) 0.06 10^3/uL 10^3/uL (0.02-0.10) Absolute Nucleated RBC 0.00 10^3/uL 10^3/uL (0-0.01) Immature Gran % 0.3 % % (0.0-1.1) Immature Gran # 0.03 10^3/uL 10^3/uL (0.00-0.10) Sodium 140 mEq/L mEq/L (134-144) Potassium 3.5 mEq/L mEq/L (3.5-5.2) Chloride 104 mEq/L mEq/L (97-110) Carbon Dioxide 20 mEq/l L mEq/l (22-31) Anion Gap 16 mEq/L mEq/L (8-16) BUN 16 mg/dL mg/dL (7-23) Creatinine 1.2 mg/dL mg/dL (0.7-1.3) Estimated GFR > 60 Glucose 169 mg/dL H mg/dL (70-100) Calcium 11.2 mg/dL H mg/dL (8.5-10.4) Phosphorus 3.4 mg/dL mg/dL (2.5-4.5) Troponin I 0.012 ng/mL ng/mL (0-0.034) NT-Pro-B Natriuret Pep 1980 pg/mL H pg/mL (0-125) Medications Given: Discontinued Medications Carvedilol (Coreg) 6.25 mg PO EDNOW ONE Stop: 06/13/17 11:21 Last Admin: 06/13/17 11:35 Dose: 6.25 mg Lisinopril (Zestril) 10 mg PO EDNOW ONE Stop: 06/13/17 11:22 Last Admin: 06/13/17 11:35 Dose: 10 mg Lisinopril (Zestril) 10 mg PO EDNOW ONE Stop: 06/13/17 11:46 Last Admin: 06/13/17 11:37 Dose: Not Given Lorazepam (Ativan Injection) 1 mg IVP EDNOW ONE Stop: 06/13/17 10:54 Last Admin: 06/13/17 11:17 Dose: 1 mg Metoprolol Tartrate (Lopressor Injection) 5 mg IVP Q5M SUMI Stop: 06/13/17 13:56 Last Admin: 06/13/17 13:57 Dose: 5 mg Departure - Departure Disposition: [facility] Acute Clinical Impression: LBBB (left bundle branch block) Dyspnea Qualifiers: Dyspnea type: unspecified Qualified Code(s): R06.00 - Dyspnea, unspecified Congestive heart failure (CHF) Qualifiers: Congestive heart failure type: systolic Congestive heart failure chronicity: acute Qualified Code(s): I50.21 - Acute systolic (congestive) heart failure Hypertension Qualifiers: Hypertension type: unspecified Qualified Code(s): I10 - Essential (primary) hypertension Condition: Good
[2017-06-13 10:45] LABS: % IMMATURE GRANULYOCYTES 0.3 % (0.0-1.1); ABSOLUTE IMMATURE GRANULOCYTES 0.03 10^3/uL (0.00-0.10); ADD DIFF? NO; ADD MORPH? NO; ADD SCAN? NO; ATYPICAL LYMPHOCYTE FLAG 0 (0-99); FRAGMENT RBC FLAG 0 (0-99); HEMATOCRIT 45.3 % (40.0-51.0); HEMOGLOBIN 15.2 g/dL (13.7-17.5); LEFT SHIFT FLG 0 (0-99); LIPEMIA HEMOLYSIS FLAG 80 (0-99); MEAN CELL HEMOGLOBIN 27.8 pg (27.9-34.1); MEAN CELL HEMOGLOBIN CONCENTR. 33.6 g/dL (32.4-36.7); PLATELET CLUMPS FLAG 0 (0-99); PLATELET COUNT 351 10^3/uL (150-400); RED BLOOD CELL COUNT 5.46 10^6/uL (4.40-6.38); RED CELL DISTRIBUTION WIDTH 14.2 % (11.5-15.2)
[2017-06-13 10:49] LABS: ANION GAP 16 mEq/L (8-16); CALCIUM 11.2 mg/dL (8.5-10.4); CARBON DIOXIDE 20 mEq/l (22-31); CHLORIDE 104 mEq/L (97-110); CREATININE 1.2 mg/dL (0.7-1.3); GLOMERULAR FILTRATION RATE > 60; GLUCOSE 169 mg/dL (70-100); POTASSIUM 3.5 mEq/L (3.5-5.2); SODIUM 140 mEq/L (134-144)
[2017-06-13] MEDS ORDERED: LORazepam 2 MG/ML INJ IVP ONE (10:53)
[2017-06-13 11:01] LABS: TROPONIN I 0.012 ng/mL (0-0.034)
--- NOTE | 2017-06-13 11:16 | CPEKG ---
Heart Rate: 94 RR Interval: 638 P-R Interval: 196 QRSD Interval: 118 QT Interval: 380 QTC Interval: 476 P [place]: 66 QRS [place]: 33 T Wave [place]: 148 EKG Severity - ABNORMAL ECG - EKG Impression: SINUS RHYTHM EKG Impression: INCOMPLETE LEFT BUNDLE BRANCH BLOCK Electronically Signed By: Wellington Urbina 13-Jun-2017 14:38:38
[2017-06-13] MEDS ORDERED: LORazepam 2 MG/ML INJ ONE (11:18)
[2017-06-13] MEDS ORDERED: CARVEDILOL 6.25 MG TAB PO ONE (11:20)
[2017-06-13] MEDS ORDERED: LISINOPRIL 20 MG TAB PO ONE (11:21)
[2017-06-13] MEDS ORDERED: LISINOPRIL 20 MG TAB ONE (11:37)
[2017-06-13] MEDS ORDERED: LISINOPRIL 10 MG TAB PO ONE (11:45)
--- NOTE | 2017-06-13 12:44 | PDCARCONS ---
Cardiology Consult Reason for Consult: Feeling poorly Chief Complaint: Anxiety and some degree of chest tightness (radiation from back ) Requesting Physician: ER/Hospitalist History of Present Illness: Patient is a 37 y/o male with history of SKYE without regular or routine use of CPAP, but no noted CAD, HTN, HLP, or DM, who presents back to the [facility] ER with complaints of not feeling well. Patient was recently seen and examined at [facility] with echocardiography revealing a "new" significant drop in left ventricular systolic function. During the previous hospitalization, there were recommendations for the patient to proceed with angiography, but there were too many stressors being noted, and the patient left AMA. Recommendation were for patient to start therapy on Coreg and Lisinopril, but again, there was a moderate degree of stress for the patient, and these therapies were not started. Today, the patient is in the ER with family with complaints of not feeling well. Anxiety does not appear evident, but in speaking with the patient, it is clear that there is some about the recent hospital stay. Patient [place], and this has elevated the patient's stress levels. No history of HTN per patient reports (the patient has not been told that his pressure were elevated in the past). Patient felt "pressure" from interaction with cardiology before. No complaints of chest pains or pressure, but there was some radiation of bilateral shoulder (scapular) pains forward to the chest. History Information - Allergies/Home Medication List Allergies/Adverse Reactions: No Known Allergies Allergy (Verified 06/10/17 13:05) Home Medications: Aspirin [Aspirin 325 mg (*)] 325 mg PO DAILY PRN 06/13/17 [Last Taken 06/12/17] Herbals/Supplements -Info Only 1 ea PO DAILY 06/13/17 [Last Taken Unknown] Multivitamins [Multivitamin (*)] 1 each PO DAILY 06/13/17 [Last Taken Unknown] I have personally reviewed and updated: family history, medical history, social history, surgical history - Past Medical History Additional medical history: SKYE - Surgical History Reports: no pertinent surgical hx - Family History Positive for: CAD, hypertension - Social History Smoking Status: Never smoked Alcohol Use: None Drug Use: None Cardiac History - Cardiac History Cardiac Risk Factors: male Timing/Duration: Days Severity: moderate Severity Scale: 2 Location: shoulder Activities at Onset: emotional stress Modifying Factors: improves with: breathing, rest HENRRY Risk Evaluation age greater or equal to 65: no greater or equal to 3 CAD risk factors: no known CAD(stenosis greater or eqaul to 50%): no ASA use in past 7 days: no severe angina(greater or equal to 2 episodes in 24hrs): no EKG ST changes greater or equal to 0.5mm: no positive cardiac marker: no Total Score: 0 HENRRY Score: 4.7% risk Physical Exam Temp Pulse Resp BP Pulse Ox 36.7 C 97 18 165/126 H 98 06/13/17 09:31 06/13/17 12:14 06/13/17 12:14 06/13/17 12:14 06/13/17 12:14 Constitutional: no apparent distress, appears nourished, not in pain Eyes: PERRL Ears, Nose, Mouth, Throat: moist mucous membranes Cardiovascular: regular rate and rhythym, no murmur, rub, or gallop, No diastolic murmur, No JVD Peripheral Pulses: 2+: dorsalis-pedis (R), dorsalis-pedis (L) Respiratory: no respiratory distress, no rales or rhonchi, clear to auscultation Gastrointestinal: normoactive bowel sounds Skin: warm, normal color, No no induration, No rash Musculoskeletal: full muscle strength, no muscle tenderness, normal joint ROM Neurologic: AAOx3, sensation intact bilaterally, CN II-XII Intact, No weakness Psychiatric: interacting appropriately, anxious (some anxiety voiced given the evolution of the events and the patient being back in the ER) Lab and Imaging 06/13/17 09:45 06/13/17 09:45 WBC 11.27 10^3/uL (3.80-9.50) H 06/13/17 09:45 RBC 5.46 10^6/uL (4.40-6.38) 06/13/17 09:45 Hgb 15.2 g/dL (13.7-17.5) 06/13/17 09:45 Hct 45.3 % (40.0-51.0) 06/13/17 09:45 MCV 83.0 fL (81.5-99.8) 06/13/17 09:45 MCH 27.8 pg (27.9-34.1) L 06/13/17 09:45 MCHC 33.6 g/dL (32.4-36.7) 06/13/17 09:45 RDW 14.2 % (11.5-15.2) 06/13/17 09:45 Plt Count 351 10^3/uL (150-400) 06/13/17 09:45 MPV 12.0 fL (8.7-11.7) H 06/13/17 09:45 Neut % (Auto) 75.1 % (39.3-74.2) H 06/13/17 09:45 Lymph % (Auto) 16.3 % (15.0-45.0) 06/13/17 09:45 [place] % (Auto) 6.9 % (4.5-13.0) 06/13/17 09:45 Eos % (Auto) 0.9 % (0.6-7.6) 06/13/17 09:45 Baso % (Auto) 0.5 % (0.3-1.7) 06/13/17 09:45 Nucleat RBC Rel Count 0.0 % (0.0-0.2) 06/13/17 09:45 Absolute Neuts (auto) 8.46 10^3/uL (1.70-6.50) H 06/13/17 09:45 Absolute Lymphs (auto) 1.84 10^3/uL (1.00-3.00) 06/13/17 09:45 Absolute Monos (auto) 0.78 10^3/uL (0.30-0.80) 06/13/17 09:45 Absolute Eos (auto) 0.10 10^3/uL (0.03-0.40) 06/13/17 09:45 Absolute Basos (auto) 0.06 10^3/uL (0.02-0.10) 06/13/17 09:45 Absolute Nucleated RBC 0.00 10^3/uL (0-0.01) 06/13/17 09:45 Immature Gran % 0.3 % (0.0-1.1) 06/13/17 09:45 Immature Gran # 0.03 10^3/uL (0.00-0.10) 06/13/17 09:45 Sodium 140 mEq/L (134-144) 06/13/17 09:45 Potassium 3.5 mEq/L (3.5-5.2) 06/13/17 09:45 Chloride 104 mEq/L (97-110) 06/13/17 09:45 Carbon Dioxide 20 mEq/l (22-31) L 06/13/17 09:45 Anion Gap 16 mEq/L (8-16) 06/13/17 09:45 BUN 16 mg/dL (7-23) 06/13/17 09:45 Creatinine 1.2 mg/dL (0.7-1.3) 06/13/17 09:45 Estimated GFR > 60 06/13/17 09:45 Glucose 169 mg/dL (70-100) H 06/13/17 09:45 Calcium 11.2 mg/dL (8.5-10.4) H 06/13/17 09:45 Phosphorus 3.4 mg/dL (2.5-4.5) 06/13/17 09:45 Troponin I 0.012 ng/mL (0-0.034) 06/13/17 09:45 NT-Pro-B Natriuret Pep 1980 pg/mL (0-125) H 06/13/17 09:45 Visualized and Interpreted EKG results: Yes EKG Interpretation: Positive for: left bundle branch block, normal sinsus rhythm EKG additional interpertation: LBBB was incomplete Telemetry: sinus rhythm/sinus tachycardia with non specific ST/T wave changes noted A/P Assessment: Patient is a 37 y/o male with relatively untreated SKYE (recommendations for CPAP use, but uncertain on frequency of use), but no CAD, HTN, HLP, or DM, documented, who presents back to [facility] ER with complaints of not feeling well. Recent evaluation in the ER/hospital with "new" heart failure noted by echocardiography (EF of 35-40%). Hypertension was noted in the ER (>200/>100 mm Hg). Recommendations were for patient to start therapy on Coreg and Lisinopril, but neither of these drugs were filled/started. Patient with moderate stress with pending move to the [facility]. No active cardiovascular complaints of chest pains or pressure. No PND or orthopnea. No lower extremity edema has been noted. Patient was told that he needs an angiogram, but given the presentation, developed unease with the discussion. Patient back to the ER given some non specific symptoms noted, and desire to re discuss option. Plan: Given the elevation to pressures noted in the ER, would begin therapy on coreg 6.25 mg twice per day and Lisinopril 10 mg once per day. Would ensure that the patient is using CPAP as recommended. Advance diet today. Will further discuss angiography tomorrow with the patient. Would make the patient NPO after midnight to allow this potential procedure to progress. With new CHF by echo and incomplete LBBB pattern, the patient should have angiography to better evaluate for CAD.
[2017-06-13] MEDS ORDERED: METOPROLOL TARTRATE 5 MG/5 ML INJ ONE (13:30)
[2017-06-13] MEDS: METOPROLOL TARTRATE 5 MG/5 ML INJ IVP SCH ×4 (13:35→15:57)
[2017-06-13] MEDS: SPIRONOLACTONE 25 MG TAB PO SCH (14:20)
[2017-06-13] MEDS ORDERED: ONDANSETRON DISINTEGRATING 4 MG TAB PO PRN (15:24)
[2017-06-13] MEDS ORDERED: ONDANSETRON 4 MG/2 ML VIAL IVP PRN (15:24)
[2017-06-13] MEDS ORDERED: ACETAMINOPHEN 325 MG TAB PO PRN (15:24)
[2017-06-13] MEDS ORDERED: D50W 25 GM/50 ML SYR IVP PRN (15:29)
[2017-06-13] MEDS ORDERED: ASPIRIN 325 MG TAB PO PRN (15:39)
--- NOTE | 2017-06-13 16:11 | GHP ---
[f rep st] HISTORY AND PHYSICAL DATE OF ADMISSION: 06/13/2017 CHIEF COMPLAINT: Feeling poorly. HISTORY OF PRESENT ILLNESS: The patient is a 37-year-old who was admitted a few days ago with short ness of breath and diagnosed with new onset congestive heart failure. Echocardiogram revealed a dec reased EF of 35% to 40% with moderate global hypokinesis of the left ventricle. He was scheduled to have an angiogram for further evaluation of this and the patient opted to leave against medical adv ice. Noteworthy during his hospitalization he was also noted to have significantly elevated blood p ressure, as well as probable diabetes with a hemoglobin A1c of 8.6. Since going home he has been un able to tolerate his blood pressure medication and stopped them. He said he felt good the first day but after that started to feel poorly again and came in today for further evaluation and treatment. He denies any significant fevers or chills. No significant weight gain. No chest pain or chest p ressure. He said he has chronically locked scapula and gets some chest tightness from that has not changed significantly recently. His breathing has been somewhat labored at times but not currently. He has had no lower extremity edema. No nausea vomiting, or diarrhea. No other significant compl aints. REVIEW OF SYSTEMS: A 10-point review of systems was done with pertinent positives present in HPI in cluding constitutional, HEENT, cardiovascular, pulmonary, abdomen, , musculoskeletal, neurologic, endocrine, and psychiatric. PAST MEDICAL HISTORY: Includes: 1. Recently diagnosed diabetes with elevated hemoglobin A1c. 2. Uncontrolled hypertension. 3. Systolic congestive heart failure. Unknown etiology. 4. Anxiety. PAST SURGICAL HISTORY: Unremarkable. FAMILY HISTORY: He has a maternal uncle with diabetes. The father side of his family is significan t for heart disease. 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 He plans on moving to [facility] soon and relocating there. He does not smoke. Does not drink. Denies marijuana use or an y other recreational drug use. MEDICATIONS: Prior to admission none. ALLERGIES: No known drug allergies. PHYSICAL EXAMINATION: VITAL SIGNS: He is afebrile, heart rate 88, blood pressure 171/122, respirat ions 16, he is 94% on room air. GENERAL: He is a very pleasant 37-year-old, moderately overweight man in no distress. He is alert and oriented. His speech is clear and fluent. HEENT: Atraumatic. Pupils equal, round, and reactive. Extraocular movements intact. Sclerae anicteric. Ears within normal limits. Hearing normal. Mucous membranes moist. Oropharynx clear. NECK: Supple. No eliane nopathy. Thyroid within normal limits. HEART: Regular rate and rhythm. No murmur, gallop, or rub . LUNGS: Clear with diminished breath sounds at the bases. Slight rales left greater than right. ABDOMEN: Soft, nontender, nondistended. No obvious masses. EXTREMITIES: No clubbing, cyanosis, or edema. MUSCULOSKELETAL: No joint effusions or deformities. NEUROLOGIC: He moves all 4 extremi ties equally. He is alert and oriented. SKIN: Intact. No rash. PSYCHIATRIC: He is slightly anx ious. Otherwise appropriate. LABORATORY DATA: CBC shows a white count 11.3, H and H and platelet count are within normal limits. Electrolytes are normal. Glucose is elevated at 169, calcium 11.2. BNP is 1980. Electrocardiogra m personally reviewed and interpreted shows complete left bundle branch block. He is in sinus rhyth m. ASSESSMENT AND PLAN: A 37-year-old presents with feeling poorly after recent diagnosis of cardiomyo arturo, unclear etiology without treatment. 1. Systolic heart failure. Unclear etiology. Certainly his history of uncontrolled blood pressure could be contributing. However, need to rule out ischemia. Cardiology has seen the patient in [facility] and plans on doing an angiography in the morning here to further evaluate this. In the [facility], we will continue to treat his blood pressure. 2. Uncontrolled hypertension. Resume lisinopril and Coreg. Will add hydralazine on an as-needed b asis IV for uncontrolled blood pressure and consider adding amlodipine if his blood pressures remain elevated on the above regimen. 3. Type 2 diabetes with elevated hemoglobin A1c. I had a long discussion with the patient about th is. We will add sliding scale insulin and consider medical treatment at the time of discharge. We will not start metformin at this time due to likely dye load tomorrow. However, this would be a goo d starting point with close followup. 4. Hypercalcemia, unclear etiology. We will check vitamin D levels and hyperparathyroid levels. 5. Anxiety. Patient says he has only been anxious recently due to stressors and situational. We w ill provide p.r.n. lorazepam. /[id number]/MODL
[2017-06-13] MEDS: LORazepam 0.5 MG TAB PO PRN (16:23)
[2017-06-13 16:47] LABS: PTH INTACT NO MINERALS 289.6 pg/ml (10.8-79.4)
[2017-06-13 16:52] LABS: VITAMIN D 25-HYDROXY TOTAL 16.4 ng/mL (30-100)
[2017-06-13] MEDS: hydrALAZINE 20 MG/ML VIAL IVP PRN (17:22)
[2017-06-13] MEDS: CARVEDILOL 6.25 MG TAB PO SCH (17:25)
[2017-06-13] MEDS: INSULIN LISPRO 100 UNIT/ML SC SCH (18:41)
[2017-06-13] MEDS: LISINOPRIL 10 MG TAB PO SCH (20:29)
[2017-06-14 05:20] LABS: ALANINE AMINOTRANSFERASE 32 IU/L (21-72); ALBUMIN 3.4 g/dL (3.5-5.0); ALKALINE PHOSPHATASE 66 IU/L (38-126); ANION GAP 10 mEq/L (8-16); ASPARTATE AMINOTRANSFERASE 16 IU/L (17-59); BILIRUBIN,TOTAL 0.6 mg/dL (0.1-1.4); CALCIUM 10.9 mg/dL (8.5-10.4); CARBON DIOXIDE 23 mEq/l (22-31); CHLORIDE 104 mEq/L (97-110); CREATININE 1.5 mg/dL (0.7-1.3); GLOMERULAR FILTRATION RATE 52; GLUCOSE 133 mg/dL (70-100); POTASSIUM 3.7 mEq/L (3.5-5.2); SODIUM 137 mEq/L (134-144); TOTAL PROTEIN 6.2 g/dL (6.3-8.2)
[2017-06-14] MEDS: SPIRONOLACTONE 25 MG TAB PO SCH (08:25)
[2017-06-14] MEDS: CARVEDILOL 6.25 MG TAB PO SCH ×2 (08:25→15:57)
[2017-06-14] MEDS: LISINOPRIL 10 MG TAB PO SCH ×2 (08:25→19:36)
[2017-06-14] MEDS: MULTIVITAMINS 1 EACH TAB PO SCH (08:26)
[2017-06-14] MEDS: LORazepam 0.5 MG TAB PO PRN ×2 (08:32→18:14)
[2017-06-14] MEDS: INSULIN LISPRO 100 UNIT/ML SC SCH ×3 (09:33→19:37)
[2017-06-14] MEDS ORDERED: diphenhydrAMINE 25 MG CAP PO ONE ×2 (10:08→10:32)
[2017-06-14] MEDS ORDERED: ASPIRIN EC 325 MG TAB PO ONE ×2 (10:08→10:32)
[2017-06-14] MEDS ORDERED: FAMOTIDINE 20 MG TAB PO ONE (10:08)
[2017-06-14] MEDS ORDERED: DIAZEPAM 5 MG TAB PO ONE (10:08)
[2017-06-14] MEDS ORDERED: NS 1,000 ML IV ONE (10:08)
[2017-06-14] MEDS ORDERED: FAMOTIDINE 20 MG TAB ONE (10:32)
[2017-06-14] MEDS ORDERED: fentaNYL 100 MCG/2 ML INJ ONE (10:51)
[2017-06-14] MEDS ORDERED: LIDOCAINE 1% 300 MG/30 ML SDV ONE (10:51)
[2017-06-14] MEDS ORDERED: MIDAZOLAM 2 MG/2 ML VIAL ONE (10:51)
[2017-06-14] MEDS ORDERED: IOPAMIDOL (ISOVUE-370) 150 ML BTL IV ONE (10:52)
[2017-06-14 11:08] LABS: INR 1.16 (0.83-1.16); PROTIME(PATIENT) 14.8 SEC (12.0-15.0)
[2017-06-14 11:12] LABS: CHOLESTEROL 162 mg/dL (140-200); CHOLESTEROL/HDL RATIO 4.76 RATIO (1.00-4.97); HIGH DENSITY LIPOPROTEIN 34 mg/dL (40-65); LDL/HDL RATIO 2.91 RATIO (1.00-3.64); LOW DENSITY LIPOPROTEIN 99 mg/dL (70-100); NON-HIGH DENSITY LIPOPROTEIN 128 mg/dL (90-129); TRIGLYCERIDE 145 mg/dL (40-150); VERY LOW DENSITY LIPOPROTEINS 29 mg/dL (8-25)
[2017-06-14] MEDS ORDERED: METOPROLOL TARTRATE 5 MG/5 ML INJ ONE (11:28)
--- NOTE | 2017-06-14 13:50 | HOSPPROG ---
Hospitalist Progress Note Assessment/Plan: 37-year-old with minimal past medical history is readmitted after he left AMA a week ago. He was admitted with systolic congestive heart failure. Angiogram this admission notes multivessel disease. Other medical issues include new diagnosis of diabetes and uncontrolled hypertension # coronary artery disease: Multivessel. Cardiology to discuss management with cardiothoracic surgery. # Uncontrolled hypertension. * Increase Coreg to 12.5 twice daily * continue lisinopril 10 twice a day * hydralazine IV as needed * could add Norvasc if blood pressure still elevated # diabetes, continue sliding scale insulin. Would need to get outpatient regimen once he is close to discharge # hyperparathyroidism. Elevated parathyroid hormone levels in the setting of mildly high calcium patient also has significantly diminished vitamin-D levels. * Start on high dose vitamin-D * will need further outpatient evaluation for this in the future Subjective: patient is slightly sedated post cath. Denies any chest pain nausea vomiting or shortness of breath, discussed with Dr. Juan Objective: Vital Signs Temp Pulse Resp BP Pulse Ox 36.9 C 82 12 157/113 H 99 06/14/17 08:00 06/14/17 08:00 06/14/17 08:00 06/14/17 08:00 06/14/17 08:00 Laboratory Results 06/14/17 03:43 06/13/17 06/14/17 06/15/17 05:59 05:59 05:59 Intake Total 900 Balance 900 PT 14.8 SEC (12.0-15.0) 06/14/17 10:40 INR 1.16 (0.83-1.16) 06/14/17 10:40 - Physical Exam Constitutional: no apparent distress, obese Eyes: PERRL Ears, Nose, Mouth, Throat: moist mucous membranes, hearing normal, ears appear normal Cardiovascular: regular rate and rhythym, no murmur, rub, or gallop Respiratory: no respiratory distress, no rales or rhonchi, clear to auscultation Gastrointestinal: normoactive bowel sounds, soft, non-tender abdomen, no palpable masses Skin: warm Musculoskeletal: no muscle tenderness, no joint effusions Psychiatric: anxious ICD10 Worksheet Patient Problems: Problems Problem Status Onset Hypertension Acute LBBB (left bundle branch block) Acute Dyspnea Acute Dyspnea Acute Congestive heart failure (CHF) Acute Hypertension Acute CHF (congestive heart failure) Acute
[2017-06-14] MEDS: ERGOCALCIFEROL 50,000 I.UNIT CAP PO SCH (13:52)
[2017-06-14] MEDS: hydrALAZINE 20 MG/ML VIAL IVP PRN (13:52)
[2017-06-14] MEDS ORDERED: HYDROCODONE/APAP 5/325 TAB PO PRN (15:02)
[2017-06-14] MEDS ORDERED: OXYCODONE/APAP 5/325 TAB PO PRN (15:02)
[2017-06-14] MEDS ORDERED: ONDANSETRON 4 MG/2 ML VIAL IVP PRN (15:02)
[2017-06-14] MEDS ORDERED: NITROGLYCERIN 0.4 MG BTL SL PRN (15:02)
[2017-06-14] MEDS ORDERED: ATROPINE SULFATE 1 MG/10 ML SYR IVP PRN (15:02)
--- NOTE | 2017-06-14 15:24 | PDCARPN ---
Cardiology Progress Note Chief Complaint: No complaints this morning Assessment/Plan: Assessment: Patient is a 37 y/o male with poorly controlled HTN, SKYE without regular/ routine use of CPAP, likely DM (elevation in A1C to >8 was noted), and uncertain HLP, who presented back to [facility] with shortness of breath and weakness. Patient with recent admission and limited work up with newly noted reduction in left ventricular systolic function by echocardiography. Recommendations were for the patient to have angiography, but given anxiety about the process, the patient left AMA. After two days, the patient returned, and a lengthy discussion about options for work up was undertaken. Plans last night were to begin aggressive antihypertensive therapy, and proceed with angiography today. No complaints of chest pains or pressure last night. No PND or orthopnea. Ongoing anxiety (appropriate for the situation at hand). Good sleep last night with CPAP use. Plan: (1) Would continue therapy on antihypertensive medications Coreg, Lisinopril, and Aldactone - likely need to have uptitration given the blood pressures that continue to be noted (2) Angiography this morning - risks and benefits were discussed and consent was signed Subjective: No cardiovascular complaints were voiced this morning. Reviewed/Discussed With: family, hospitalist, multidisciplinary team Objective: Vital Signs (8 Hrs) Temp Pulse Resp BP Pulse Ox 06/14/17 13:40 37.3 C 75 12 170/125 H 94 06/14/17 08:00 36.9 C 82 12 157/113 H 99 Intake/Output (24 Hrs) 06/13/17 06/14/17 06/15/17 05:59 05:59 05:59 Intake Total 900 Balance 900 Intake: Oral (ml) 900 Other: Intake Quantity Yes Sufficient Number of Voids Toilet 2 Result Diagrams: 06/13/17 09:45 06/14/17 03:43 EKG: sinus rhythm/sinus tachycardia with non specific ST/T wave changes noted. Telemetry: sinus rhythm Echocardiogram: EF 35-40% with global hypokinesis - Physical Exam Constitutional: WDWN, healthy appearing, no apparent distress, obese Eyes: PERRL, EOMI Ears, Nose, Mouth, Throat: moist mucous membranes Cardiovascular: regular rate and rhythm, no murmurs, no rubs, no gallops, pulses symmetric bilat, No jugular vein distention Peripheral Pulses: 2+: dorsalis-pedis (R), dorsalis-pedis (L) Respiratory: clear to auscultate bilat, no crackles, no wheezes Gastrointestinal: normoactive bowel sounds Skin: no rashes, no edema Musculoskeletal: no muscular tenderness, no joint effusions Neurologic: AAOx3, CN II-XII grossly intact Psychiatric: cooperative, interactive, following commands, anxious ICD10 Worksheet Patient Problems: Problems Problem Status Onset Congestive heart failure (CHF) Acute Dyspnea Acute Hypertension Acute LBBB (left bundle branch block) Acute CHF (congestive heart failure) Acute Dyspnea Acute Hypertension Acute
--- NOTE | 2017-06-14 15:30 | PDDXCAT ---
Diagnostic Cath Note - . Date: 06/14/17 Fly Fishing Guide: Yessica High-risk criteria on non-invasive testing: severe resting left ventricular dysfunction (LVEF<35%) - Procedure Access: right groin Procedure: left heart catheterization, coronary angiography, left ventriculogram - Materials Left Heart Cath size: 6F Left Heart Cath materials: standard multipack (JL4, JR4, pigtail) - Findings-Left Heart Catheterization LM: Short vessel with bifurcation into the LAD and LCX vessels. No appreciated critical CAD was noted to the LM vessel. LAD: Medium diameter vessel with diffuse, critical disease. There were 80-90% stenoses to the proximal and mid LAD. Distal disease in a rapidly tapered vessel. One principal diagonal with branching in early vessel. Both ostial and bifurcation disease was noted. Left to right collaterals fill in the occluded RCA. LCX: Medium diameter vessel with several smallish OMs. There were two "ghost" OMs noted, but the origin of these vessels was not appreciated. Mid LCX wsa 80- 90% stenosed. Once again, left to right collaterals fill in the 100% occluded RCA vessel. RCA: 100% proximal occlusion with limited right to right collateralization. EDP: 35 mm Hg LVEF: 20-30% Wall motion: severe global hypokinesis Complications: none Estimated blood loss: <50ml Closure method: Angioseal Assessment: Patient is a 37 y/o male with likely history of HTN, HLP, DM, and SKYE, with critical, multivessel CAD and moderate to severe reduction in LVEF (20 -30%). Plan: (1) Aggressive risk factor modification - uptitration of coreg and lisinopril (2) Would begin aggressive DM therapy (3) Start statin therapy (4) ASA (low dose) should start today (5) CT surgery consult is pending Patient Problems: Problems Problem Status Onset Congestive heart failure (CHF) Acute Dyspnea Acute Hypertension Acute LBBB (left bundle branch block) Acute CHF (congestive heart failure) Acute Dyspnea Acute Hypertension Acute
--- NOTE | 2017-06-14 17:45 | GCON ---
[f rep st] CONSULTATION DATE OF CONSULTATION: 06/14/2017 Patient was seen at the request of Dr. Juan, with the patient's permission. IMPRESSION: 1. Severe 3-vessel disease with dilated cardiomyopathy. 2. Diabetes mellitus, not previously diagnosed and uncontrolled. 3. Uncontrolled hypertension, chronic. 4. Obesity. 5. New onset congestive heart failure. RECOMMENDATIONS: Approximately 1 hour was spent with the patient and his father, describing the maggie ology of coronary disease, the advanced nature of his disease, his cardiomyopathy which is likely mu ltifactorial including hypertension, diabetes, possible prior infarcts, and other unrelated problems . I advised him that he is at higher risk for intervention, although it is our opinion that coronar y bypass grafting, preferably with arterial conduit, would be his best initial option. Alternatives include stenting, and medical therapy, both of which would carry lower short-term risks but much wo rse long-term results. He was currently in congestive heart failure, being medically managed with m edications added to control that. They wish to discuss options amongst themselves, and I will touch base with him in the morning. CHIEF COMPLAINT: This is a 37-year-old gentleman who is noncompliant with medications historically, presented with uncontrolled hypertension and shortness of breath, and was diagnosed to have a cardi omyopathy with ejection fraction of 35-40, and diagnosed with new onset congestive heart failure. Ayanna hua was also noted to have extremely high blood pressures and had not been treated for it in the past. He was started on antihypertensives and was noncompliant, discharged himself against medical advic e; however, returned to resume further care. Medical history is difficult to know since his biologi robert father and family are not a part of his life; although, he does believe there is a high incidenc e of coronary disease on that side of the family. He denies smoking, or alcohol or drug abuse. 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 REVIEW OF SYSTEMS: Except for his admitting complaint, is otherwise unremarkable. MEDICATIONS: On admission, he was taking none. ALLERGIES: Denied. PHYSICAL EXAMINATION: GENERAL: He is a young gentleman lying supine in bed, in no apparent distres s. Quite pleasant, apparently well-informed. VITAL SIGNS: Blood pressure in the room was 160/120 while talking with me. He has multiple entries of uncontrolled hypertension since admission. HEENT : Normocephalic. JILLIAN, EOMI. NECK: Without bruit, adenopathy or thyromegaly. HEART: Rate is r egular without murmur, S3 or S4. LUNGS: Basilar rales. ABDOMEN: Protuberant, nontender. Bowel s ounds are active. BNP was 1980 on admission. EKG showed left bundle branch block with sinus rhythm. Baseline creatin ine is 1.5. Please see cath report for details. /[id number]/MODL
[2017-06-14] MEDS: amLODIPine BESYLATE 5 MG TAB PO SCH (18:12)
[2017-06-15 04:59] LABS: ANION GAP 12 mEq/L (8-16); CALCIUM 10.6 mg/dL (8.5-10.4); CARBON DIOXIDE 21 mEq/l (22-31); CHLORIDE 106 mEq/L (97-110); CREATININE 1.4 mg/dL (0.7-1.3); GLOMERULAR FILTRATION RATE 56; GLUCOSE 137 mg/dL (70-100); POTASSIUM 3.8 mEq/L (3.5-5.2); SODIUM 139 mEq/L (134-144)
[2017-06-15] MEDS: SPIRONOLACTONE 25 MG TAB PO SCH (08:01)
[2017-06-15] MEDS: amLODIPine BESYLATE 5 MG TAB PO SCH (08:01)
[2017-06-15] MEDS: LISINOPRIL 10 MG TAB PO SCH ×2 (08:01→19:32)
[2017-06-15] MEDS: CARVEDILOL 6.25 MG TAB PO SCH ×2 (08:02→17:13)
[2017-06-15] MEDS: ERGOCALCIFEROL 50,000 I.UNIT CAP PO SCH (08:02)
[2017-06-15] MEDS: MULTIVITAMINS 1 EACH TAB PO SCH (08:02)
[2017-06-15] MEDS: INSULIN LISPRO 100 UNIT/ML SC SCH ×3 (09:00→17:16)
--- NOTE | 2017-06-15 11:48 | HOSPPROG ---
Hospitalist Progress Note Assessment/Plan: 37-year-old with minimal past medical history is readmitted after he left AMA a week ago. He was admitted with systolic congestive heart failure. Angiogram this admission notes multivessel disease. Other medical issues include new diagnosis of diabetes and uncontrolled hypertension # coronary artery disease: Multivessel. Patient considering bypass surgery but has not decided yet, it sounds like he would like a 2nd opinion. He is willing to stay to have his blood pressure better controlled and his diabetes controlled, he is tentatively on the schedule for bypass on Wednesday. # Uncontrolled hypertension. * Increase Coreg to 12.5 twice daily * continue lisinopril 10 twice a day * hydralazine IV as needed * Norvasc 5 mg daily added # diabetes, continue sliding scale insulin. Would need to get outpatient regimen once he is close to discharge # hyperparathyroidism. Elevated parathyroid hormone levels in the setting of mildly high calcium patient also has significantly diminished vitamin-D levels. * Start on high dose vitamin-D, on discharge will continue [id number] units once a week and have his vitamin D level checked in 3-6 months * will need further outpatient evaluation for this in the future for repeat PTH and vitamin-D. Subjective: Patient more relaxed today is not having any pain or shortness of breath but considering all his options. Objective: Vital Signs Temp Pulse Resp BP Pulse Ox 36.6 C 81 20 135/91 H 99 06/15/17 11:17 06/15/17 11:17 06/15/17 11:17 06/15/17 11:17 06/15/17 11:17 Laboratory Results 06/15/17 03:47 06/14/17 06/15/17 06/16/17 05:59 05:59 05:59 Intake Total 900 800 Output Total 1650 400 Balance 900 -850 -400 PT 14.8 SEC (12.0-15.0) 06/14/17 10:40 INR 1.16 (0.83-1.16) 06/14/17 10:40 - Physical Exam Constitutional: no apparent distress, obese Eyes: PERRL, EOMI Ears, Nose, Mouth, Throat: moist mucous membranes Cardiovascular: regular rate and rhythym, no murmur, rub, or gallop Respiratory: no respiratory distress, no rales or rhonchi, clear to auscultation Gastrointestinal: normoactive bowel sounds Genitourinary: no bladder fullness Skin: warm, normal color Musculoskeletal: normal joint ROM, no joint effusions Neurologic: AAOx3 Psychiatric: interacting appropriately, not anxious ICD10 Worksheet Patient Problems: Problems Problem Status Onset Hypertension Acute LBBB (left bundle branch block) Acute Dyspnea Acute Dyspnea Acute Congestive heart failure (CHF) Acute Hypertension Acute CHF (congestive heart failure) Acute
--- NOTE | 2017-06-15 12:56 | PDCARPN ---
Cardiology Progress Note Chief Complaint: No complaints today. Much better blood pressure control is being noted. Assessment/Plan: Assessment: 06-15-17 Patient doing well today. Ongoing manipulation of oral therapy for better control of noted hypertension. Sliding scale insulin has been well tolerated with improvement in glucose measurements noted. Minor, expected, right groin discomfort noted, with improvement in comparison to yesterday. No haematoma noted on physical exam, and distal pulses were 2+ bilaterally to lower extremities. Ongoing thoughts about what the next step - having surgery here or elsewhere. Patient has more social support in [place], [place], but it is not here. No complaints of chest pains or pressure. No PND or orthopnea. At present, compliance with prescribed medications has been good. No ambulation has been achieved while in house, and the patient would like to start doing more. 06-14-17 Patient is a 37 y/o male with poorly controlled HTN, SKYE without regular/ routine use of CPAP, likely DM (elevation in A1C to >8 was noted), and uncertain HLP, who presented back to [facility] with shortness of breath and weakness. Patient with recent admission and limited work up with newly noted reduction in left ventricular systolic function by echocardiography. Recommendations were for the patient to have angiography, but given anxiety about the process, the patient left AMA. After two days, the patient returned, and a lengthy discussion about options for work up was undertaken. Plans last night were to begin aggressive antihypertensive therapy, and proceed with angiography today. No complaints of chest pains or pressure last night. No PND or orthopnea. Ongoing anxiety (appropriate for the situation at hand). Good sleep last night with CPAP use. Plan: (1) Maintain oral antihypertensive therapy as at present - coreg, lisinopril, spironolactone, and amlodipine (2) Likely there is a need for oral hypoglycemic therapy (would not pursue insulin at present), but we need to have 48 hours post angiogram prior to these therapies being started (3) Would consider the addition of stains given the newly noted critical CAD, regardless of the patient's personal lipid profile (anything greater than 70 mg/ dL for LDL requires aggressive therapy) (4) Patient will make a decision about surgery within the next few days, and in the mean time, aggressive medical therapy will be started. Subjective: No cardiovascular complaints Reviewed/Discussed With: hospitalist, multidisciplinary team Objective: Vital Signs (8 Hrs) Temp Pulse Resp BP Pulse Ox 06/15/17 11:17 36.6 C 81 20 135/91 H 99 06/15/17 09:30 136/94 H 06/15/17 07:39 165/117 H 06/15/17 07:38 36.3 C 76 16 158/114 H 99 Intake/Output (24 Hrs) 06/14/17 06/15/17 06/16/17 05:59 05:59 05:59 Intake Total 900 800 Output Total 1650 400 Balance 900 -850 -400 Intake: Oral (ml) 900 800 Output: Urine (ml) 1650 400 Urinal 1650 400 Other: Weight 99 kg Intake Quantity Yes Sufficient Number of Voids Toilet 2 Urinal 1 1 Number of Stools Urinal 1 Result Diagrams: 06/13/17 09:45 06/15/17 03:47 Telemetry: sinus rhythm at 85 bpm. - Physical Exam Constitutional: WDWN, healthy appearing, no apparent distress Eyes: PERRL, EOMI Ears, Nose, Mouth, Throat: moist mucous membranes Cardiovascular: regular rate and rhythm, no murmurs, no rubs, no gallops, pulses symmetric bilat Peripheral Pulses: 2+: dorsalis-pedis (R), dorsalis-pedis (L) Respiratory: clear to auscultate bilat, no crackles, no wheezes Gastrointestinal: normoactive bowel sounds Skin: no rashes, no edema Musculoskeletal: no muscular tenderness Neurologic: AAOx3, CN II-XII grossly intact Psychiatric: cooperative, interactive, following commands ICD10 Worksheet Patient Problems: Problems Problem Status Onset Congestive heart failure (CHF) Acute Dyspnea Acute Hypertension Acute LBBB (left bundle branch block) Acute CHF (congestive heart failure) Acute Dyspnea Acute Hypertension Acute
[2017-06-15] MEDS: LORazepam 0.5 MG TAB PO PRN (14:41)
[2017-06-15] MEDS: ASPIRIN EC 81 MG TAB PO SCH (17:13)
[2017-06-15] MEDS: ATORVASTATIN CALCIUM 10 MG TAB PO SCH (19:32)
[2017-06-16] MEDS: LORazepam 0.5 MG TAB PO PRN ×3 (00:20→22:44)
[2017-06-16] MEDS: CARVEDILOL 6.25 MG TAB PO SCH ×2 (08:29→18:30)
[2017-06-16] MEDS: ENOXAPARIN 40 MG/0.4 ML SYR SC SCH (08:29)
[2017-06-16] MEDS: amLODIPine BESYLATE 5 MG TAB PO SCH (08:31)
[2017-06-16] MEDS: ASPIRIN EC 81 MG TAB PO SCH (08:31)
[2017-06-16] MEDS: LISINOPRIL 10 MG TAB PO SCH ×2 (08:31→19:42)
[2017-06-16] MEDS: SPIRONOLACTONE 25 MG TAB PO SCH (08:31)
[2017-06-16] MEDS: MULTIVITAMINS 1 EACH TAB PO SCH (08:31)
[2017-06-16] MEDS ORDERED: ERGOCALCIFEROL 50,000 I.UNIT CAP PO SCH (09:00)
[2017-06-16] MEDS: INSULIN LISPRO 100 UNIT/ML SC SCH ×3 (09:15→18:31)
--- NOTE | 2017-06-16 11:30 | CPEKG ---
Heart Rate: 87 RR Interval: 690 P-R Interval: 208 QRSD Interval: 112 QT Interval: 388 QTC Interval: 467 P [place]: 68 QRS [place]: 68 T Wave [place]: 86 EKG Severity - ABNORMAL ECG - EKG Impression: SINUS RHYTHM EKG Impression: INCOMPLETE LEFT BUNDLE BRANCH BLOCK Electronically Signed By: Grey Juan 16-Jun-2017 14:51:21
--- NOTE | 2017-06-16 14:11 | PDCARPN ---
Cardiology Progress Note Chief Complaint: No cardiovascular complaints Assessment/Plan: Assessment: 06-16-17 Patient doing well today. Blood pressure is better controlled with therapy that is being rendered. Patient reporting that he is tolerating the therapy without appreciable side effects. Patient is moving toward having surgical assessment in [place], [place], and has a contact at this point in time. No chest pains or pressure. Mild groin discomfort continues to be noted, but is improved in comparison to yesterday. Patient has been ambulating more in the halls today, without limitations being noted. 06-15-17 Patient doing well today. Ongoing manipulation of oral therapy for better control of noted hypertension. Sliding scale insulin has been well tolerated with improvement in glucose measurements noted. Minor, expected, right groin discomfort noted, with improvement in comparison to yesterday. No haematoma noted on physical exam, and distal pulses were 2+ bilaterally to lower extremities. Ongoing thoughts about what the next step - having surgery here or elsewhere. Patient has more social support in [place], [place], but it is not here. No complaints of chest pains or pressure. No PND or orthopnea. At present, compliance with prescribed medications has been good. No ambulation has been achieved while in house, and the patient would like to start doing more. 06-14-17 Patient is a 37 y/o male with poorly controlled HTN, SKYE without regular/ routine use of CPAP, likely DM (elevation in A1C to >8 was noted), and uncertain HLP, who presented back to [facility] with shortness of breath and weakness. Patient with recent admission and limited work up with newly noted reduction in left ventricular systolic function by echocardiography. Recommendations were for the patient to have angiography, but given anxiety about the process, the patient left AMA. After two days, the patient returned, and a lengthy discussion about options for work up was undertaken. Plans last night were to begin aggressive antihypertensive therapy, and proceed with angiography today. No complaints of chest pains or pressure last night. No PND or orthopnea. Ongoing anxiety (appropriate for the situation at hand). Good sleep last night with CPAP use. Plan: (1) Continue oral therapy for blood pressure as at present (2) Would start low dose statins given the severity of the CAD noted (3) Would begin aggressive DM therapy (4) Will have copies of the patient angiogram and echocardiogram made for the patient to physically have at the time of discharge (5) Would plan on discharge to home tomorrow with intent to have travel to the [facility] in the near future Subjective: No cardiovascular complaints Reviewed/Discussed With: hospitalist, multidisciplinary team Objective: Vital Signs (8 Hrs) Temp Pulse Resp BP Pulse Ox 06/16/17 11:34 36.6 C 86 14 141/99 H 96 06/16/17 07:41 36.3 C 90 16 158/108 H 99 Intake/Output (24 Hrs) 06/15/17 06/16/17 06/17/17 05:59 05:59 05:59 Intake Total 800 1000 200 Output Total 7610 364 0517 Balance -850 600 -925 Intake: Oral (ml) 800 1000 200 Output: Urine (ml) 4608 707 9844 Urinal 1631 249 6487 Other: Weight 99 kg 99.2 kg Intake Quantity Yes Sufficient Number of Voids Toilet 2 Urinal 1 1 1 Number of Stools Urinal 1 Result Diagrams: 06/13/17 09:45 06/15/17 03:47 Telemetry: normal sinus rhythm. LVH pattern - Physical Exam Constitutional: WDWN, healthy appearing, no apparent distress, obese Eyes: PERRL, EOMI Ears, Nose, Mouth, Throat: moist mucous membranes Cardiovascular: regular rate and rhythm, no murmurs, no rubs, no gallops, pulses symmetric bilat, No jugular vein distention Peripheral Pulses: 2+: dorsalis-pedis (R), dorsalis-pedis (L) Respiratory: clear to auscultate bilat, no crackles, no wheezes Gastrointestinal: normoactive bowel sounds, no tenderness Skin: no rashes, no edema Musculoskeletal: no muscular tenderness Neurologic: AAOx3, CN II-XII grossly intact Psychiatric: cooperative, interactive, following commands ICD10 Worksheet Patient Problems: Problems Problem Status Onset Congestive heart failure (CHF) Acute Dyspnea Acute Hypertension Acute LBBB (left bundle branch block) Acute CHF (congestive heart failure) Acute Dyspnea Acute Hypertension Acute
--- NOTE | 2017-06-16 18:04 | HOSPPROG ---
Hospitalist Progress Note Assessment/Plan: 37-year-old with minimal past medical history is readmitted after he left AMA a week ago. He was admitted with systolic congestive heart failure. Angiogram this admission notes multivessel disease. Other medical issues include new diagnosis of diabetes and uncontrolled hypertension # coronary artery disease: Multivessel. Patient considering bypass surgery but has not decided yet, it sounds like he would like a 2nd opinion. He is willing to stay to have his blood pressure better controlled and his diabetes controlled, he is tentatively on the schedule for bypass on Wednesday. TELE (persoanlly reviewed and interpreted) sinus rhythm - NV in 200's oxygen saturations 98% on RA - continue ASA, statin, coreg and REINA # Uncontrolled hypertension. -cont Coreg to 12.5 twice daily -continue lisinopril 10 twice a day -hydralazine IV as needed -cont Norvasc 5 mg daily # diabetes, - BS improved 130-200's - continue sliding scale insulin. -Would need to get outpatient regimen once he is close to discharge # hyperparathyroidism. Elevated parathyroid hormone levels in the setting of mildly high calcium patient also has significantly diminished vitamin-D levels. - Start on high dose vitamin-D, on discharge will continue 23063 units once a week and have his vitamin D level checked in 3-6 months - will need further outpatient evaluation for this in the future for repeat PTH and vitamin-D. # proph - lovenox # diet - cardiac # dispo - > 2MN as pt requiring monitoring prior to anticipated bypass I have discussed the case with RN - will continue current medication regimen- checking EKG as NV appears more prolonged today on Telemetry Subjective: denies CP Objective: Vital Signs Temp Pulse Resp BP Pulse Ox 36.7 C 87 20 137/95 H 98 06/16/17 15:52 06/16/17 15:52 06/16/17 15:52 06/16/17 15:52 06/16/17 15:52 Laboratory Results 06/15/17 03:47 06/15/17 06/16/17 06/17/17 05:59 05:59 05:59 Intake Total 800 1000 700 Output Total 9056 644 5413 Balance -850 600 -425 PT 14.8 SEC (12.0-15.0) 06/14/17 10:40 INR 1.16 (0.83-1.16) 06/14/17 10:40 - Physical Exam Constitutional: appears nourished Eyes: anicteric sclera Ears, Nose, Mouth, Throat: moist mucous membranes Cardiovascular: regular rate and rhythym Respiratory: no respiratory distress, no rales or rhonchi Gastrointestinal: normoactive bowel sounds Genitourinary: no bladder fullness Skin: warm, normal color Musculoskeletal: No asymmetric calves Neurologic: AAOx3 Psychiatric: interacting appropriately Lymph, Heme, Immunologic: no cervical LAD ICD10 Worksheet Patient Problems: Problems Problem Status Onset Congestive heart failure (CHF) Acute Dyspnea Acute Hypertension Acute LBBB (left bundle branch block) Acute CHF (congestive heart failure) Acute Dyspnea Acute Hypertension Acute
[2017-06-16] MEDS: ATORVASTATIN CALCIUM 10 MG TAB PO SCH (19:42)
[2017-06-17 05:45] VITALS: O2SAT 96
[2017-06-17 07:38] VITALS: BP 149/111; PULSE 85; RESP 19; TEMP 97.9
[2017-06-17] MEDS: amLODIPine BESYLATE 5 MG TAB PO SCH (08:06)
[2017-06-17] MEDS: LISINOPRIL 10 MG TAB PO SCH (08:06)
[2017-06-17] MEDS: MULTIVITAMINS 1 EACH TAB PO SCH (08:06)
[2017-06-17] MEDS: SPIRONOLACTONE 25 MG TAB PO SCH (08:06)
[2017-06-17] MEDS: ASPIRIN EC 81 MG TAB PO SCH (08:06)
[2017-06-17] MEDS: CARVEDILOL 6.25 MG TAB PO SCH (08:07)
[2017-06-17] MEDS: INSULIN LISPRO 100 UNIT/ML SC SCH (08:07)
[2017-06-17] MEDS: ENOXAPARIN 40 MG/0.4 ML SYR SC SCH (08:07)
--- NOTE | 2017-06-17 10:10 | PDCARPN ---
Cardiology Progress Note Chief Complaint: No cardiovascular complaints. Assessment/Plan: Assessment: 06-17-17 Patient doing well today. Tolerance to medical therapy has been good. Blood pressures are better controlled overall, but still with intermittent elevations noted. Patient has been walking in the halls and not appreciating symptoms. Family was present in the room with the patient today. Cath and echo images were burned onto CDs for the patient to take upon discharge. I did call the CT surgeon in [place], Dr. Cristhian Stein, and spoke at length about the echocardiographic and angiographic findings. Dr. Stein is wanting to the patient to proceed [place] for personal consultation and further discussion about surgical options. Patient with some degree of stress with the thought of leaving the hospital. 06-16-17 Patient doing well today. Blood pressure is better controlled with therapy that is being rendered. Patient reporting that he is tolerating the therapy without appreciable side effects. Patient is moving toward having surgical assessment in [place], [place], and has a contact at this point in time. No chest pains or pressure. Mild groin discomfort continues to be noted, but is improved in comparison to yesterday. Patient has been ambulating more in the halls today, without limitations being noted. 06-15-17 Patient doing well today. Ongoing manipulation of oral therapy for better control of noted hypertension. Sliding scale insulin has been well tolerated with improvement in glucose measurements noted. Minor, expected, right groin discomfort noted, with improvement in comparison to yesterday. No haematoma noted on physical exam, and distal pulses were 2+ bilaterally to lower extremities. Ongoing thoughts about what the next step - having surgery here or elsewhere. Patient has more social support in [place], [place], but it is not here. No complaints of chest pains or pressure. No PND or orthopnea. At present, compliance with prescribed medications has been good. No ambulation has been achieved while in house, and the patient would like to start doing more. 06-14-17 Patient is a 37 y/o male with poorly controlled HTN, SKYE without regular/ routine use of CPAP, likely DM (elevation in A1C to >8 was noted), and uncertain HLP, who presented back to [facility] with shortness of breath and weakness. Patient with recent admission and limited work up with newly noted reduction in left ventricular systolic function by echocardiography. Recommendations were for the patient to have angiography, but given anxiety about the process, the patient left AMA. After two days, the patient returned, and a lengthy discussion about options for work up was undertaken. Plans last night were to begin aggressive antihypertensive therapy, and proceed with angiography today. No complaints of chest pains or pressure last night. No PND or orthopnea. Ongoing anxiety (appropriate for the situation at hand). Good sleep last night with CPAP use. Plan: (1) Would discharge the patient to home today (2) Maintain therapy on Coreg (12.5 mg twice per day), Norvasc (5 mg per day), Spironolactone (25 mg per day), Lisinopril (10 mg twice per day), for assistance with management of HTN. (3) Lipitor (10 mg PO QHS) should continue for history of HLP (4) Low dose ASA (81 mg per day) for the degree of CAD noted (5) Would begin oral hypoglycemic therapy (Metformin 500 mg) given the A1C that was appreciated - this therapy was held given the recent IV contrast exposure (6) Cardiology and/or Cardiothoracic surgery call call [facility] to further discuss this case if questions arise. Subjective: Patient doing well today without voiced cardiovascular complaints. Reviewed/Discussed With: family, hospitalist, multidisciplinary team Objective: Vital Signs (8 Hrs) Temp Pulse Resp BP Pulse Ox 06/17/17 07:36 36.6 C 85 19 149/111 H 96 06/17/17 04:00 37.1 C 91 12 133/103 H 96 Intake/Output (24 Hrs) 06/16/17 06/17/17 06/18/17 05:59 05:59 05:59 Intake Total 1000 1500 Output Total 400 2275 Balance 600 -775 Intake: Oral (ml) 1000 1500 Output: Urine (ml) 400 2275 Urinal 400 2275 Other: Weight 98.4 kg Intake Quantity Yes Sufficient Number of Voids Toilet 2 Urinal 1 1 Result Diagrams: 06/13/17 09:45 06/15/17 03:47 Telemetry: normal sinus rhythm with non specific ST/T wave changes noted - Physical Exam Constitutional: WDWN, healthy appearing, no apparent distress, obese Eyes: PERRL, EOMI Ears, Nose, Mouth, Throat: moist mucous membranes Cardiovascular: regular rate and rhythm, no murmurs, no rubs, no gallops, pulses symmetric bilat, No jugular vein distention Peripheral Pulses: 2+: dorsalis-pedis (R), dorsalis-pedis (L) Respiratory: clear to auscultate bilat, no crackles, no wheezes Gastrointestinal: normoactive bowel sounds Skin: no rashes, no edema Musculoskeletal: no muscular tenderness Neurologic: AAOx3, CN II-XII grossly intact Psychiatric: cooperative, interactive, following commands ICD10 Worksheet Patient Problems: Problems Problem Status Onset Congestive heart failure (CHF) Acute Dyspnea Acute Hypertension Acute LBBB (left bundle branch block) Acute CHF (congestive heart failure) Acute Dyspnea Acute Hypertension Acute
--- NOTE | 2017-06-17 15:13 | GDS ---
[f rep st] DISCHARGE SUMMARY DISCHARGE DIAGNOSES: Include: 1. Multivessel coronary artery disease. 2. Hypertension. 3. Diabetes. 4. Hyperparathyroidism. HISTORY OF PRESENT ILLNESS: A 37-year-old male with recently new diagnosis of multivessel coronary disease, ischemic cardiomyopathy, hypertension, diabetes, who presented with fatigue. For details o f patient's initial presentation, please see the history and physical dated 06/13/2017. CONSULTATIVE SERVICES: Include Cardiology. PROCEDURES: 06/14/2017, the patient underwent left heart catheterization and was found to have federica re multivessel disease, as well as severe global hypokinesis consistent with ischemic cardiomyopathy . HOSPITAL COURSE: By issue: 1. Coronary artery disease. Patient was found to have extensive disease on cardiac catheterization . Was seen both by Cardiology and cardiothoracic surgery who recommended cardiac bypass. The derek nt was kept in the hospital and had his cardiac drug regimen titrated. He is being discharged today to follow in [place], [place], for anticipated bypass surgery close the family where he has adequa te support. He will continue aspirin, statin, beta kiara, REINA inhibitor, and spironolactone as he transitions in the next few days to [place] for surgical intervention. 2. Ischemic cardiomyopathy. Ejection fraction estimated at 20% to 30% on ventriculogram. The earlene ent was euvolemic and compensated on the day of disposition. Again, we will continue with a cardiac regimen that included aspirin, statin, Coreg, lisinopril and spironolactone. 3. Uncontrolled hypertension. Patient had slow and gradual titration to a multidrug regimen. On t he day of disposition, he was on amlodipine 5 mg, spironolactone 25, Zestril 10 twice daily and Core g 12.5 twice daily. Systolic blood pressures on this regimen were controlled in the 130s to 140. 4. Uncontrolled diabetes. Patient's A1c is in the 8s. Treated with sliding scale insulin during t his hospital stay but is being discharged on oral metformin to be up titrated in the outpatient sett ing. 5. Hyperparathyroidism. Patient had elevated PTH levels and elevated calcium. Initiated on high-d ose vitamin D supplementation and will continue this weekly at discharge. [facility]6 [facility]. MEDICATIONS AT THE TIME OF DISPOSITION: Please reference the medication reconciliation printed on 0 06/17/2017. FOLLOWUP APPOINTMENTS: Include immediately in [place], [place], for anticipated cardiac bypass. PENDING STUDIES: At the time of this dictation are none. TIME SPENT: I spent greater than 30 minutes in the planning and coordination of this discharge. /[id number]/MODL
== END 2017-06-17 10:55 | disposition home or self-care (01) | DRG 287 ==
LOC: F2W 13:02 → OBSVTOIN 15:24
PROVIDERS: ADMIT Internal Medicine; ATTEND Internal Medicine
PROC: 4A023N7 Measurement of Cardiac Sampling and Pressure, Left Heart, Percutaneous Approach (ICD-10-PCS; principal; 2017-06-14)
PROC: B2151ZZ Fluoroscopy of Left Heart using Low Osmolar Contrast (ICD-10-PCS; principal; 2017-06-14)
PROC: B2111ZZ Fluoroscopy of Multiple Coronary Arteries using Low Osmolar Contrast (ICD-10-PCS; principal; 2017-06-14)
DX: I25.10 Atherosclerotic heart disease of native coronary artery without angina pectoris (principal); I11.0 Hypertensive heart disease with heart failure; E21.3 Hyperparathyroidism, unspecified; I25.5 Ischemic cardiomyopathy; G47.33 Obstructive sleep apnea (adult) (pediatric); F41.9 Anxiety disorder, unspecified; E66.9 Obesity, unspecified; E78.5 Hyperlipidemia, unspecified; E11.69 Type 2 diabetes mellitus with other specified complication; Z91.19 Patient's noncompliance with other medical treatment and regimen
CPT/HCPCS: 96374; C1760; J0360; J1644; J1650; J1815; J2060; J2250; J3010; Q9967